=== PATIENT | female | born 1935 | race Caucasian/White ===

== ENCOUNTER 2017-10-25 20:27 | Inpatient (IN) | payer MEDICARE ==
[2017-10-25 21:46] LABS: Hemoglobin 8.8 g/dL (12.0-16.0); Mean Corpuscular HGB CONC 34.3 g/dL (32.0-36.0); Mean Corpuscular Hemoglobin 34.6 pg (27.0-31.0); Mean Platelet Volume 8.1 fL (7.4-10.4); Platelet Count 280 thou/uL (130-400); RBC Distribution Width 23.7 % (11.5-14.5); Red Blood Cell (RBC) Count 2.55 mill/uL (4.20-5.40); White Blood Cell (WBC) Count 10.1 thou/uL (4.8-10.8)
[2017-10-25 21:54] LABS: ALT (SGPT) 10 U/L (8-55); AST (SGOT) 20 U/L (5-34); Albumin 3.5 g/dL (3.4-4.8); Alkaline Phosphatase 56 U/L (40-150); Anion Gap 11 mmol/L (10-20); BUN (Urea Nitrogen) 24 mg/dL (9.8-20.1); Bilirubin, Total 0.6 mg/dL (0.2-1.2); CK (CPK) 17 U/L (29-168); Calc. Creatinine Clearance 0 mL/min (70-130); Calcium 9.2 mg/dL (7.8-10.44); Carbon Dioxide 27 mmol/L (23-31); Chloride 106 mmol/L (98-107); Estimated GFR-MDRD 48; Globulin 2.7 g/dL (2.4-3.5); Glucose 102 mg/dL (83-110); Potassium 3.5 mmol/L (3.5-5.1); Protein, Total 6.2 g/dL (6.0-8.3); Sodium 140 mmol/L (136-145)
[2017-10-25 21:58] LABS: CKMB 0.7 ng/mL (0-6.6); Troponin I Less than 0.010 ng/mL (< 0.028)
[2017-10-25 22:04] LABS: #Basophils 0.1 thou/uL (0.0-0.2); #Eosinphils 0.4 thou/uL (0.0-0.7); #Lymphocytes 4.2 thou/uL (1.20-3.40); #Monocytes 0.9 thou/uL (0.11-0.59); #Neutrophils 4.4 thou/uL (1.40-6.50); %Basophils 1.1 % (0.0-1.0); %Eosinophils 4.3 % (0.0-10.0); %Lymphocytes 41.7 % (21.0-51.0); %Neutrophils 43.9 % (42.0-75.0); Anisocytosis SLIGHT = 6-15 cells (100X) (0-5/hpf); Basophilic Stippling SLIGHT = 1-2 cells (100X) (None Seen); MDiff Complete? YES; Macrocytosis SLIGHT = 6-15 cells (100X) (0-5/hpf)
[2017-10-25 22:06] LABS: Acetaminophen Less than 6.0 mcg/mL (10.0-30.0); Alcohol Less than 10 mg/dL (Less than 10); Salicylate Less than 8.0 mg/dL (15.0-30.0)
[2017-10-25 22:10] LABS: Bilirubin Negative (Negative); Blood, Urine Negative (Negative); Clarity CLOUDY (Clear); Glucose, Urine (Dipstick) Negative (Negative); Leukocyte Negative (Negative); Nitrite Negative (Negative); Protein, Urine (Dipstick) Negative (Neg-Trace); Specific Gravity, Urine 1.016 (1.002-1.036); pH, Urine 6.5 (5.0-9.0)
[2017-10-25 22:20] LABS: Amphetamine Not Detected (NotDetected); Barbiturates Screen Not Detected (NotDetected); Benzodiazepine Screen Not Detected (NotDetected); Cocaine Metabolite Screen Not Detected (NotDetected); Medtox Control Line Valid? VALID (VALID); Medtox Reader # READER 1; Methadone Not Detected (NotDetected); Methamphetamine Not Detected (NotDetected); Opiate Screen Not Detected (NotDetected); Oxycodone Screen Not Detected (NotDetected); Phencyclidine (PCP) Not Detected (NotDetected); THC/Cannabinoid Screen Not Detected (NotDetected); Tricyclic Screen Not Detected (NotDetected)
--- NOTE | 2017-10-25 22:34 | RAD ---
PORTABLE AP CHEST X-RAY 10/25/17 HISTORY: Altered mental status. Weakness. On antibiotics for bladder infection. COMPARISON: 05/06/06. FINDINGS: The patient is rotated to the left which accentuates the cardiac silhouette and mediastinal structure s. There is a patchy parenchymal opacity seen within the left mid lung zone which may represent a foc al pneumonia. Right lung is clear. Degenerative changes are seen in the spine, there is right convexe d scoliosis of the thoracolumbar spine. Vascular calcifications in the thoracic aorta. IMPRESSION: 1. Pneumonia left mid lung zone. Followup to complete resolution is recommended. 2. Right convex scoliosis thoracolumbar spine. There is osseous irregularity of what is thought to be the L1 vertebral body. Patient is noted to have a burst fracture of the L1 vertebral body which is not well evaluated on this exam. POS: SHERI
[2017-10-25] MEDS ORDERED: cefTRIAXone\\ROCEPHIN 2 GM in Sodium Chloride 0.9% 100 ML IVPB SCH (23:00)
--- NOTE | 2017-10-25 23:37 | CT ---
CT HEAD WITHOUT IV CONTRAST 10/25/17 HISTORY: Altered mental status. Visual hallucinations. COMPARISON: None available. FINDINGS: There is a low density focus seen within the right thalamus related to a lacunar infarction of indete rminate age. There is decreased attenuation seen within the periventricular white matter likely refle ctive of chronic small vessel ischemic changes. There is a low density area in the medial aspect of t he left occipital lobe which is only seen on a single slice selection and may represent volume averag ing through a sulcus as opposed to a infarction in the left occipital lobe. There are no other findin gs to suggest an acute cortical infarction. There is no intraparenchymal or extra-axial hemorrhage. M ild cerebral and cerebellar volume loss is present. The ventricular system is normal in size, shape a nd position for the degree of sulcal atrophy. The visualized paranasal sinuses and mastoid air cells are clear. There is a lytic lesion measuring 9 mm within the right occipital bone just adjacent to the midline. While this could represent a tracey ioma, additional etiologies for this lesion cannot be excluded. Further evaluation with bone scan is suggested. IMPRESSION: 1. No definite acute intracranial abnormalities demonstrated. There is a low density area in the left occipital lobe which is felt to most likely be related to volume averaging through a sulcus as opposed to an acute infarction. MRI would be a more sensitive study of choice for evaluation of an ac traci infarction. 2. 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 3. Chronic small vessel ischemic changes with cerebral volume loss. 4. Lytic lesion within the right occipital bone which could potentially represent a hemangioma, but other etiologies for this lesion cannot be entirely excluded. Bone scan is suggested for further evaluation. POS: SHERI
[2017-10-25] MEDS ORDERED: Aspirin 325 MG TAB ONE (23:50)
[2017-10-26] MEDS ORDERED: Acetaminophen 325 MG TAB PO PRN (01:30)
[2017-10-26] MEDS ORDERED: Ondansetron ODT 4 MG TAB SL PRN (01:30)
[2017-10-26] MEDS ORDERED: Ondansetron HCl/PF 4 MG/2 ML Vial IVP PRN ×2 (01:30→01:32)
[2017-10-26] MEDS ORDERED: Loperamide HCl 2 MG CAP PO PRN (01:32)
[2017-10-26] MEDS ORDERED: HYDROcodone/Acetaminophen 5/325 mg Tablet PO PRN (01:32)
[2017-10-26] MEDS ORDERED: Milk Of Magnesia 30 ML UDCUP PO PRN (01:32)
[2017-10-26] MEDS ORDERED: Senokot 8.6 MG TAB PO PRN (01:32)
[2017-10-26] MEDS ORDERED: Mag-Al 1200 mg/1200 mg/30 ML UDCUP PO PRN (01:32)
[2017-10-26] MEDS: Sodium Chloride 0.9% 1,000 ML IV SCH ×2 (01:57→08:37)
[2017-10-26] MEDS ORDERED: Azithromycin 500 MG in Sodium Chloride 0.9% 250 ML 250 ML IVPB SCH (02:00)
--- NOTE | 2017-10-26 02:54 | HP ---
DATE OF SERVICE: 10/25/2017 PRIMARY CARE PHYSICIAN: Dr. Danny Sewell. REASON FOR ADMISSION: Altered mental status, pneumonia. HISTORY OF PRESENT ILLNESS: An 82-year-old female, who has history of tobacco abuse disorder, who wa s brought to emergency room because the patient was having hallucinations. She was altered. She was incoherent. She was recently given antibiotic therapy with amoxicillin for urinary tract infection. She was having cough, but she did not have any pleuritic chest pain. She did not have any fever or chills at home. The patient's behavior was little bit strange and that is why family member was concerned about and d ecided to bring to emergency room. In the emergency room, the patient is found with left-sided pneumonia. Her CT brain showed lacunar i nfarction of undetermined age. This patient has underlying history of Alzheimer's dementia and she i s on medicine for that. The patient's family member reports that her confusion is more than usual. ALLERGIES: No known drug allergy. CURRENT HOME MEDICATIONS: Aspirin 81 mg p.o. daily, vitamin D3 of 1000 units p.o. daily, Colace 100 mg p.o. daily, Aricept 10 mg p.o. daily, levothyroxine 25 mcg p.o. daily, Namenda 5 mg p.o. b.i.d., T oprol-XL 100 mg p.o. daily, Zoloft 100 mg p.o. daily, trospium 60 mg p.o. daily in the morning. REVIEW OF SYSTEMS: The following complete review of systems was negative, unless otherwise mentioned in the HPI or below: Constitutional: Weight loss or gain, ability to conduct usual activities. Skin: Rash, itching. Eyes: Double vision, pain. ENT/Mouth: Nose bleeding, neck stiffness, pain, tenderness. Cardiovascular: Palpitations, dyspnea on exertion, orthopnea. Respiratory: Shortness of breath, wheezing, cough, hemoptysis, fever or night sweats. Gastrointestinal: Poor appetite, abdominal pain, heartburn, nausea, vomiting, constipation, or diarr hea. Genitourinary: Urgency, frequency, dysuria, nocturia. Musculoskeletal: Pain, swelling. Neurologic/Psychiatric: Anxiety, depression. Allergy/Immunologic: Skin rash, bleeding tendency. Please see my HPI for pertinent positive and negative. All other review of systems reviewed and nega tive except as mentioned in the HPI. Review of system is not reliable because of her underlying cesilia ntia. PAST MEDICAL HISTORY: Hypothyroidism, recurrent urinary tract infection, hypertension, dyslipidemia, Alzheimer's dementia. PAST PSYCHIATRIC HISTORY: Anxiety and depression. PAST SURGICAL HISTORY: Hysterectomy. SOCIAL HISTORY: The patient has history of smoking. She lives at home with the family. No history of alcohol or other illicit drug abuse. FAMILY HISTORY: No strong family history of premature coronary artery disease, stroke or cancer. EMERGENCY ROOM COURSE: The patient is given Rocephin, azithromycin, aspirin and IV fluid. PHYSICAL EXAMINATION: VITAL SIGNS: On arrival, blood pressure 183/69, pulse 62, respiratory rate 16, temperature 98.3, sat uration 95% on room air, weight 67.1 kilograms. GENERAL: The patient is currently alert, awake, arousable, but slightly confused. HEAD: Normocephalic, atraumatic. EYES: Pupils are round and reactive to light. Extraocular muscle intact. ENT: Oropharynx within normal limits. Moist mucous membranes. No oral lesion, no pharyngeal erythe ma, no exudate. NECK: Supple, no JVD, no thyromegaly, no carotid bruit. LUNGS: A few rales noted on the left side. No wheeze, no rhonchi. CARDIAC: S1, S2 appears regular. No murmur, no gallop, no rub. ABDOMEN: Soft, bowel sounds present, nontender, nondistended. No organomegaly, no mass, no suprapub ic tenderness. BACK: Unremarkable, no CVA tenderness. EXTREMITIES: Upper extremity, passive movement of all joints are normal. Lower extremities, no keara a. Good peripheral pulsation. SKIN: No skin rash. HEMATOLOGICAL: No lymphadenopathy. NEUROLOGIC: The patient is pleasantly demented. Detailed neurological examination is not possible, but I could not elicit any focal neurological deficit based on gross examination. PSYCHIATRIC: Normal affect. SIGNIFICANT LABORATORY DATA: 1. EKG showing first degree AV block, nonspecific ST-T changes in inferior leads. 2. CT brain based on my review, brain atrophy, chronic ischemic white matter changes. The patient d oes have an indeterminant lacunar infarction in thalamus, chronic small vessel ischemic changes. 3. Chest x-ray showing pneumonia in the left mid lung zone. 4. CBC: WBC 10.1, hemoglobin 8.8, MCV 101, platelet 280. 5. BMP: Sodium 140, potassium 3.5, chloride 106, carbon dioxide 27, anion gap 11, BUN 24, creatinin e 1.08, glucose 102, calcium 9.2, lactic acid 1.5. 6. LFT: AST 20, ALT 10, alkaline phosphatase 56, albumin 3.5. CK 17, CK-MB 0.7, troponin I less th an 0.010. TSH 2.23. 7. Urinalysis normal. Urine drug screen negative. Serum drug screen negative. ASSESSMENT AND PLAN: IMPRESSION: 1. Altered mental status (hallucination, incoherent and confusion), most likely related with underly ing pneumonia. Other etiology needs to be excluded. 2. Macrocytic anemia. Check B12, folate and start folic acid, vitamin B12, and multivitamin therapy . 3. Community-acquired pneumonia. Start Rocephin and Levaquin therapy. 4. Tobacco abuse disorder. Smoking cessation counseling given. We will offer nicotine patch if nee ded. 5. Hypothyroidism. Continue home dose of Synthroid 25 mcg p.o. daily. 6. Anxiety and depression. Continue Zoloft 100 mg p.o. daily. 7. Alzheimer's dementia. Continue Namenda 5 mg p.o. b.i.d., and Aricept 10 mg p.o. daily. 8. Hypertension. Continue Toprol-XL 100 mg p.o. daily. 9. Deep venous thrombosis prophylaxis. Lovenox 40 mg subcu daily. 10. Gastrointestinal prophylaxis. Pepcid 20 mg IV daily. 11. Code status: The patient is FULL CODE. The patient's daughter is surrogate decision maker. Disposition plan based on clinical course. We are expecting the patient's stay in hospital 24-48 oz rs. If condition does not improve, then we will consider changing to inpatient status. We will also start PT, OT while in hospital.
[2017-10-26 05:28] LABS: #Basophils 0.1 thou/uL (0.0-0.2); #Eosinphils 0.5 thou/uL (0.0-0.7); #Lymphocytes 4.4 thou/uL (1.20-3.40); #Neutrophils 3.7 thou/uL (1.40-6.50); %Basophils 1.1 % (0.0-1.0); %Lymphocytes 45.3 % (21.0-51.0); %Monocytes 10.3 % (0.0-10.0); %Neutrophils 38.3 % (42.0-75.0); Hemoglobin 7.8 g/dL (12.0-16.0); Mean Corpuscular Hemoglobin 33.4 pg (27.0-31.0); Mean Platelet Volume 8.6 fL (7.4-10.4); Platelet Count 263 thou/uL (130-400); RBC Distribution Width 24.2 % (11.5-14.5); Red Blood Cell (RBC) Count 2.34 mill/uL (4.20-5.40); White Blood Cell (WBC) Count 9.8 thou/uL (4.8-10.8)
[2017-10-26 05:49] LABS: Anion Gap 10 mmol/L (10-20); BUN (Urea Nitrogen) 20 mg/dL (9.8-20.1); Calc. Creatinine Clearance 50 mL/min (70-130); Calcium 8.4 mg/dL (7.8-10.44); Carbon Dioxide 25 mmol/L (23-31); Chloride 110 mmol/L (98-107); Estimated GFR-MDRD 60; Glucose 85 mg/dL (83-110); Potassium 3.3 mmol/L (3.5-5.1); Sodium 142 mmol/L (136-145)
[2017-10-26] MEDS: Levothyroxine Sodium 25 MCG TAB PO SCH (05:49)
[2017-10-26] MEDS: Donepezil HCl 10 MG TAB PO SCH (08:38)
[2017-10-26] MEDS: Cyanocobalamin (Vitamin B-12) 1,000 MCG TAB PO SCH (08:39)
[2017-10-26] MEDS: TROSPIUM 20 MG TABLET PO SCH ×2 (08:39→22:53)
[2017-10-26] MEDS: Docusate 100 MG CAP PO SCH ×2 (08:40→23:00)
[2017-10-26] MEDS: Folic Acid 1 MG TAB PO SCH (08:40)
[2017-10-26] MEDS: Enoxaparin Sodium 40 MG/0.4 ML SYRINGE SC SCH (08:40)
[2017-10-26] MEDS: Multivitamin W/ Minerals 1 TAB PO SCH (08:40)
[2017-10-26] MEDS ORDERED: Aspirin 81 mg Enteric Coated Tablet PO SCH (09:00)
[2017-10-26] MEDS ORDERED: Famotidine/PF 20 mg/2ml Vial SLOW IVP SCH (09:00)
[2017-10-26] MEDS ORDERED: Potassium Chloride 20 MEQ TAB PO SCH (09:15)
--- NOTE | 2017-10-26 11:42 | PDOC.PN ---
- Subjective Encounter Start Date: 10/26/17 Encounter Start Time: 07:40 Pt seen for followup re: community acquired pneumonia. Awake and alert, not in acute distress. Denies chest pain, shortness of breath, fevers or chills. Chronic cough, no acute change per family. Pt more alert per family. - Objective Resuscitation Status: Resuscitation Status FULL:Full Resuscitation MAR Reviewed: Yes Vital Signs & Weight: Vital Signs (12 hours) Temp Pulse Resp BP BP Pulse Ox 10/26/17 08:30 98.4 F 73 20 136/60 92 L 10/26/17 04:00 98.4 F 73 20 115/56 L 91 L 10/26/17 01:06 97.2 F L 81 20 140/65 99 10/26/17 00:55 97.2 F L 81 20 140/65 99 Weight Weight 148 lb I&O: 10/25/17 10/26/17 10/27/17 06:59 06:59 06:59 Intake Total 571 Balance 571 Result Diagrams: 10/26/17 04:12 10/26/17 04:12 EKG Reviewed by me: Yes (Tele: NSR) Phys Exam - Physical Examination Constitutional: NAD HEENT: PERRLA, moist MMs, sclera anicteric, oral pharynx no lesions Neck: no nodes, no JVD, supple, full ROM Respiratory: clear to auscultation bilateral Cardiovascular: RRR, no rub Gastrointestinal: soft, non-tender, no distention, positive bowel sounds Musculoskeletal: pulses present Neurological: moves all 4 limbs Psychiatric: normal affect Deviation from normal: Oriented to person only, not to place or time Dx/Plan (1) CAP (community acquired pneumonia) Code(s): J18.9 - PNEUMONIA, UNSPECIFIED ORGANISM Status: Acute (2) Acute encephalopathy Code(s): G93.40 - ENCEPHALOPATHY, UNSPECIFIED Status: Acute (3) Hypokalemia Code(s): E87.6 - HYPOKALEMIA Status: Acute (4) Hypothyroidism Code(s): E03.9 - HYPOTHYROIDISM, UNSPECIFIED Status: Chronic (5) HTN (hypertension) Code(s): I10 - ESSENTIAL (PRIMARY) HYPERTENSION Status: Chronic (6) Dyslipidemia Code(s): E78.5 - HYPERLIPIDEMIA, UNSPECIFIED Status: Chronic - Plan plan discussed w/ family, continue antibiotics, out of bed/ambulate * . Continue antibiotics as below. Monitor vital signs, titrate antihypertensives as needed. Acute encephalopathy improving. Family deciding re: MRI. Monitor hemoglobin, transfuse if symptomatic. Review of Systems - Review of Systems Constitutional: negative: fever, chills, sweats, weakness, malaise Respiratory: negative: Cough, Dry, Shortness of Breath, Hemoptysis, SOB with Excertion, Pleuritic Pain, Sputum, Wheezing Cardiovascular: negative: chest pain, palpitations, orthopnea, paroxysmal nocturnal dyspnea, edema, light headedness Gastrointestinal: negative: Nausea, Vomiting, Abdominal Pain, Diarrhea, Constipation, Melena, Hematochezia Genitourinary: negative: Dysuria, Frequency, Incontinence, Hematuria, Retention - Medications/Allergies Allergies/Adverse Reactions: Allergies Allergy/AdvReac Type Severity Reaction Status Date / Time No Allergy Information Allergy Verified 10/26/17 01:36 Available Medications: Current Medications Acetaminophen (Tylenol) 650 mg PO Q4H PRN PRN Reason: Headache/Fever or Pain Hydrocodone Bitart/Acetaminophen ([place] 5/325) 1 tab PO Q4H PRN PRN Reason: Moderate Pain (4-6) Al Hydroxide/Mg Hydroxide (Maalox) 30 ml PO Q6H PRN PRN Reason: Heartburn or Indigestion Aspirin (Ecotrin) 81 mg PO DAILY [facility] [place] Last Admin: 10/26/17 08:39 Dose: 81 mg Cholecalciferol (Vitamin D3) 1,000 units PO DAILY [facility] [place] Last Admin: 10/26/17 08:41 Dose: 1,000 units Cyanocobalamin (Vitamin B-12) 1,000 mcg PO DAILY [facility] [place] Last Admin: 10/26/17 08:39 Dose: 1,000 mcg Docusate Sodium (Colace) 100 mg PO BID [facility] [place] Last Admin: 10/26/17 08:40 Dose: 100 mg Donepezil HCl (Aricept) 10 mg PO DAILY [facility] [place] Last Admin: 10/26/17 08:38 Dose: 10 mg Enoxaparin Sodium (Lovenox) 40 mg SC 0900 [facility] [place] Last Admin: 10/26/17 08:40 Dose: 40 mg Famotidine (Pepcid) 20 mg SLOW IVP DAILY [facility] [place] Last Admin: 10/26/17 08:40 Dose: 20 mg Folic Acid (Folvite) 1 mg PO DAILY [facility] [place] Last Admin: 10/26/17 08:40 Dose: 1 mg Ceftriaxone Sodium 1 gm/ (Sodium Chloride) 100 mls @ 200 mls/hr IVPB 2200 [facility] [place] Levofloxacin 500 mg/ Device 100 mls @ 100 mls/hr IVPB 0200 [facility] [place] Last Admin: 10/26/17 02:31 Dose: 100 mls Sodium Chloride (Normal Saline 0.9%) 1,000 mls @ 75 mls/hr IV .[id number] [facility] [place] Last Admin: 10/26/17 08:37 Dose: 1,000 mls Iron/Minerals/Multivitamins (Theragran M) 1 tab PO DAILY [facility] [place] Last Admin: 10/26/17 08:40 Dose: 1 tab Levothyroxine Sodium (Synthroid) 25 mcg PO 0600 [facility] [place] Last Admin: 10/26/17 05:49 Dose: 25 mcg Loperamide HCl (Imodium) 2 mg PO PRN PRN PRN Reason: Diarrhea/Loose Stools Magnesium Hydroxide (Milk Of Magnesium) 30 ml PO DAILYPRN PRN PRN Reason: Constipation Memantine (Namenda) 5 mg PO BID [facility] [place] Last Admin: 10/26/17 08:39 Dose: 5 mg Metoprolol Succinate (Toprol Xl) 100 mg PO DAILY [facility] [place] Last Admin: 10/26/17 08:39 Dose: 100 mg Ondansetron HCl (Zofran) 4 mg IVP Q6H PRN PRN Reason: Nausea/Vomiting Senna (Senokot) 2 tab PO HSPRN PRN PRN Reason: Constipation Sertraline HCl (Zoloft) 100 mg PO QAM [facility] [place] Trospium (Trospium) 20 mg PO BID [facility] [place] Last Admin: 10/26/17 08:39 Dose: 20 mg
[2017-10-26] MEDS ORDERED: ALPRAZolam 0.25 MG TAB PO PRN (15:35)
[2017-10-26] MEDS ORDERED: ALPRAZolam 0.25 MG TAB PO SCH (15:45)
[2017-10-26 21:54] LABS: Hemoglobin 8.6 g/dL (12.0-16.0); Mean Corpuscular HGB CONC 32.7 g/dL (32.0-36.0); Mean Corpuscular Hemoglobin 34.1 pg (27.0-31.0); Mean Platelet Volume 8.5 fL (7.4-10.4); Platelet Count 294 thou/uL (130-400); Red Blood Cell (RBC) Count 2.52 mill/uL (4.20-5.40)
[2017-10-26 21:56] LABS: INR-International Normal Ratio 1.2; PTT 23.2 SEC (22.9-36.1); Prothrombin Time 15.7 SEC (12.0-14.7)
[2017-10-26] MEDS ORDERED: cefTRIAXone\\ROCEPHIN 1 GM in Sodium Chloride 0.9% 100 ML IVPB SCH (22:00)
[2017-10-26 22:06] LABS: ALT (SGPT) 11 U/L (8-55); AST (SGOT) 27 U/L (5-34); Albumin 3.2 g/dL (3.4-4.8); Alkaline Phosphatase 51 U/L (40-150); Anion Gap 9 mmol/L (10-20); BUN (Urea Nitrogen) 17 mg/dL (9.8-20.1); Bilirubin, Total 0.5 mg/dL (0.2-1.2); Calc. Creatinine Clearance 44 mL/min (70-130); Calcium 8.4 mg/dL (7.8-10.44); Carbon Dioxide 24 mmol/L (23-31); Chloride 113 mmol/L (98-107); Estimated GFR-MDRD 51; Globulin 2.4 g/dL (2.4-3.5); Glucose 91 mg/dL (83-110); Potassium 4.3 mmol/L (3.5-5.1); Protein, Total 5.6 g/dL (6.0-8.3); Sodium 142 mmol/L (136-145)
[2017-10-26 22:09] LABS: CKMB 1.8 ng/mL (0-6.6); Troponin I 0.035 ng/mL (< 0.028)
--- NOTE | 2017-10-26 22:12 | PDOC.EVN ---
Event Note - Event Note Event Note: Code green was called due to AMS/worsoning encephalopathy Is seen moving all extremities, vitals: spo2 around 91% otherwise normal Lungs: rhonchi+, no rales Labs ordered CT brain: no new changes when compared to yesterday's CT. Christian, continue current meds D/w daughter regarding code status: wants her to be DNR.
[2017-10-26 22:16] LABS: Anisocytosis SLIGHT = 6-15 cells (100X) (0-5/hpf); Band 13 % (5-11); Elliptocytes SLIGHT = 2-5 cells (100X) (0-1/hpf); Eosinophils 2 % (0-10); Lymphocytes 36 % (21-51); MDiff Complete? YES; Monocytes 11 % (0-10); Neutrophil 38 % (42-75); Schistocytes SLIGHT = 2-5 cells (100X) (0-1/hpf); White Blood Cell (WBC) Count 10.8 thou/uL (4.8-10.8)
[2017-10-26] MEDS: cefTRIAXone\\ROCEPHIN 1 GM, Syringe 0.4 ML in Sterile Water 9.6 ML SLOW IVP SCH (22:53)
--- NOTE | 2017-10-26 23:04 | CT ---
NONCONTRAST CT HEAD 10/26/17 HISTORY: Dementia and altered mental status. Symptomatic anemia. Slurred speech and left sided facial droop. COMPARISON: 10/25/17. FINDINGS: Again noted is the lacunar infarction in the right thalamus of indeterminate age. Chronic small vesse l ischemic changes and cerebral volume loss is again present. There is no evidence of an acute cortic al infarction, hemorrhage, mass effect or midline shift. Ventricular system is normal size, shape and position for the degree of sulcal atrophy. The lytic lesion within the right parietal bone is again present. There has been no interval change from the prior exam. IMPRESSION: 1. 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 2. Stable chronic small vessel ischemic changes and cerebral volume loss. 3. Lytic lesion right parietal bone which could potentially represent a hemangioma, but this can not be further characterized on this exam. Bone scan may be helpful for further evaluation. 4. Above findings discussed with Dr. Caban on 10/26/17 at 2153 hours.
[2017-10-27] MEDS: Levothyroxine Sodium 25 MCG TAB PO SCH (05:22)
[2017-10-27 09:20] LABS: Anion Gap 10 mmol/L (10-20); BUN (Urea Nitrogen) 14 mg/dL (9.8-20.1); Calc. Creatinine Clearance 47 mL/min (70-130); Calcium 8.5 mg/dL (7.8-10.44); Carbon Dioxide 24 mmol/L (23-31); Chloride 110 mmol/L (98-107); Estimated GFR-MDRD 56; Glucose 89 mg/dL (83-110); Potassium 3.8 mmol/L (3.5-5.1); Sodium 140 mmol/L (136-145)
[2017-10-27 09:25] LABS: CKMB 1.6 ng/mL (0-6.6); Troponin I 0.046 ng/mL (< 0.028)
[2017-10-27 09:51] LABS: Band 22 % (5-11); Eosinophils 9 % (0-10); Hypochromia SLIGHT = 6-15 cells (100X) (0-5/hpf); Lymphocytes 19 % (21-51); MDiff Complete? YES; Macrocytosis SLIGHT = 6-15 cells (100X) (0-5/hpf); Mean Corpuscular Hemoglobin 34.2 pg (27.0-31.0); Mean Platelet Volume 8.3 fL (7.4-10.4); Metamyelocyte 1 % (0-0); Monocytes 7 % (0-10); Neutrophil 42 % (42-75); Nucleated RBC 2 % (0); Platelet Count 309 thou/uL (130-400); Polychromasia SLIGHT = 2-3 cells (100X) (0-2/hpf); RBC Distribution Width 24.1 % (11.5-14.5); Red Blood Cell (RBC) Count 2.34 mill/uL (4.20-5.40); Reflex for Review?? NO; Schistocytes SLIGHT = 2-5 cells (100X) (0-1/hpf)
[2017-10-27] MEDS: Aspirin 325 MG TAB PO SCH (10:21)
[2017-10-27] MEDS: Donepezil HCl 10 MG TAB PO SCH (10:22)
[2017-10-27] MEDS: Cyanocobalamin (Vitamin B-12) 1,000 MCG TAB PO SCH (10:22)
[2017-10-27] MEDS: Famotidine 20 MG TAB PO SCH (10:22)
[2017-10-27] MEDS: Docusate 100 MG CAP PO SCH ×2 (10:22→21:42)
[2017-10-27] MEDS: Folic Acid 1 MG TAB PO SCH (10:23)
[2017-10-27] MEDS: Multivitamin W/ Minerals 1 TAB PO SCH (10:23)
[2017-10-27] MEDS: TROSPIUM 20 MG TABLET PO SCH ×2 (10:24→21:42)
[2017-10-27] MEDS: Enoxaparin Sodium 40 MG/0.4 ML SYRINGE SC SCH (10:28)
[2017-10-27] MEDS ORDERED: VANCOMYCIN IVPB PRN (10:30)
--- NOTE | 2017-10-27 10:31 | ULT ---
CAROTID DUPLEX ULTRASOUND: INDICATION: Altered mental status with a history of CVA. FINDINGS: There is mild to moderate partially calcified atherosclerotic plaque involving the left carotid bulb, and left internal carotid artery. The peak systolic velocities within the CCA and ICAs are within normal limits. The IC/CC ratio is wi thin normal limits. There is antegrade flow within both vertebral arteries. Peak systolic velocity in the right CCA was 61.8 cm/s. The right CCA was 62.7 cm/s. Peak systolic velocity in the right ICA was 56.7 cm/s. Left ICA was 57.4 cm/s. Right IC:CC ratio is 0.93. Left IC:CC ratio is 0.76. IMPRESSION: No hemodynamically significant stenosis. POS: JOSE
--- NOTE | 2017-10-27 10:33 | PDOC.PN ---
- Subjective Encounter Start Date: 10/27/17 Encounter Start Time: 07:00 -: old records requested/rev last night pt was confused, this morning pt is confused, not following any command, per family noted fascial droop, no fever, last night Ct brain did not change, last night pt was made DNR - Objective MAR Reviewed: Yes Result Diagrams: 10/27/17 08:31 10/27/17 08:31 Radiology Reviewed by me: Yes (CT brain) EKG Reviewed by me: Yes (nsr) Phys Exam - Physical Examination Constitutional: NAD HEENT: PERRLA, moist MMs, sclera anicteric Neck: no JVD, supple Respiratory: no wheezing, no rales, no rhonchi Cardiovascular: RRR, no significant murmur, no rub Gastrointestinal: soft, non-tender, no distention, positive bowel sounds Musculoskeletal: no edema, pulses present Lymphatic: no nodes Skin: no rash, normal turgor Dx/Plan (1) Acute encephalopathy Code(s): G93.40 - ENCEPHALOPATHY, UNSPECIFIED Status: Acute (2) CAP (community acquired pneumonia) Code(s): J18.9 - PNEUMONIA, UNSPECIFIED ORGANISM Status: Acute Qualifiers: Laterality: left Lung location: upper lobe of lung Qualified Code(s): J18.1 - Lobar pneumonia, unspecified organism (3) Demand ischemia Code(s): I24.8 - OTHER FORMS OF ACUTE ISCHEMIC HEART DISEASE Status: Acute (4) Hypokalemia Code(s): E87.6 - HYPOKALEMIA Status: Acute (5) Alzheimer's dementia Code(s): G30.9 - ALZHEIMER'S DISEASE, UNSPECIFIED; F02.80 - DEMENTIA IN OTH DISEASES CLASSD ELSWHR W/O BEHAVRL DISTURB Status: Chronic (6) Anxiety and depression Code(s): F41.8 - OTHER SPECIFIED ANXIETY DISORDERS Status: Chronic (7) Dyslipidemia Code(s): E78.5 - HYPERLIPIDEMIA, UNSPECIFIED Status: Chronic (8) HTN (hypertension) Code(s): I10 - ESSENTIAL (PRIMARY) HYPERTENSION Status: Chronic (9) Hypothyroidism Code(s): E03.9 - HYPOTHYROIDISM, UNSPECIFIED Status: Chronic (10) Macrocytic anemia Code(s): D53.9 - NUTRITIONAL ANEMIA, UNSPECIFIED Status: Chronic (11) Tobacco abuse Code(s): Z72.0 - TOBACCO USE Status: Chronic (12) CVA (cerebral vascular accident) Code(s): I63.9 - CEREBRAL INFARCTION, UNSPECIFIED Status: Suspected - Plan cont current plan of care, plan discussed w/ family, continue antibiotics, PT/OT , public health social worker, speech therapy * bandemia is worse, will add vancomycin * pt is not able to take orally, will start dec with 1/2 NS * will do mri brain, echo cardotid us * repeat labs tomorrow * DNR status verified again today * medication reviewed as below * symptomatic treatment. * discussed with family * add lipitor, change aspirin 325 * change to inpt status Review of Systems - Review of Systems Other: unable to review due to encephalopathy - Medications/Allergies Allergies/Adverse Reactions: Allergies Allergy/AdvReac Type Severity Reaction Status Date / Time No Allergy Information Allergy Verified 10/26/17 01:36 Available Medications: Current Medications Acetaminophen (Tylenol) 650 mg PO Q4H PRN PRN Reason: Headache/Fever or Pain Hydrocodone Bitart/Acetaminophen ([place] 5/325) 1 tab PO Q4H PRN PRN Reason: Moderate Pain (4-6) Al Hydroxide/Mg Hydroxide (Maalox) 30 ml PO Q6H PRN PRN Reason: Heartburn or Indigestion Albuterol/Ipratropium (Duoneb) 3 ml NEB [id number] [facility] Last Admin: 10/27/17 09:30 Dose: Not Given Alprazolam (Xanax) 0.25 mg PO BIDPRN PRN PRN Reason: Anxiety Aspirin (Aspirin) 325 mg PO DAILY [facility] Last Admin: 10/27/17 10:21 Dose: Not Given Atorvastatin Calcium (Lipitor) 10 mg PO [facility] Cholecalciferol (Vitamin D3) 1,000 units PO DAILY [facility] Last Admin: 10/27/17 10:21 Dose: Not Given Cyanocobalamin (Vitamin B-12) 1,000 mcg PO DAILY [facility] Last Admin: 10/27/17 10:22 Dose: Not Given Docusate Sodium (Colace) 100 mg PO BID [facility] Last Admin: 10/27/17 10:22 Dose: Not Given Donepezil HCl (Aricept) 10 mg PO DAILY [facility] Last Admin: 10/27/17 10:22 Dose: Not Given Enoxaparin Sodium (Lovenox) 40 mg SC 0900 [facility] Last Admin: 10/27/17 10:28 Dose: 40 mg Famotidine (Pepcid) 20 mg PO DAILY [facility] Last Admin: 10/27/17 10:22 Dose: Not Given Folic Acid (Folvite) 1 mg PO DAILY [facility] Last Admin: 10/27/17 10:23 Dose: Not Given Levofloxacin 500 mg/ Device 100 mls @ 100 mls/hr IVPB 0200 [facility] Last Admin: 10/27/17 02:27 Dose: 100 mls Ceftriaxone Sodium 1 gm/ (Syringe 0.4 ml/ Sterile Water) 10 mls @ 120 mls/hr SLOW IVP 2200 [facility] Last Admin: 10/26/17 22:53 Dose: 10 mls Iron/Minerals/Multivitamins (Theragran M) 1 tab PO DAILY [facility] Last Admin: 10/27/17 10:23 Dose: Not Given Levothyroxine Sodium (Synthroid) 25 mcg PO 0600 [facility] Last Admin: 10/27/17 05:22 Dose: Not Given Loperamide HCl (Imodium) 2 mg PO PRN PRN PRN Reason: Diarrhea/Loose Stools Magnesium Hydroxide (Milk Of Magnesium) 30 ml PO DAILYPRN PRN PRN Reason: Constipation Memantine (Namenda) 5 mg PO BID [facility] Last Admin: 10/27/17 10:23 Dose: Not Given Metoprolol Succinate (Toprol Xl) 100 mg PO DAILY [facility] Last Admin: 10/27/17 10:23 Dose: Not Given Miscellaneous Medication (Pharmacy To Dose) 1 each IVPB DAILYPRN PRN PRN Reason: LABS Ondansetron HCl (Zofran) 4 mg IVP Q6H PRN PRN Reason: Nausea/Vomiting Senna (Senokot) 2 tab PO HSPRN PRN PRN Reason: Constipation Sertraline HCl (Zoloft) 100 mg PO QAM [facility] Last Admin: 10/27/17 10:23 Dose: Not Given Trospium (Trospium) 20 mg PO BID [facility] Last Admin: 10/27/17 10:24 Dose: Not Given
[2017-10-27] MEDS ORDERED: Lorazepam 2 MG/ML VIAL ONE (11:34)
--- NOTE | 2017-10-27 13:24 | MRI ---
MRI BRAIN NONCONTRAST: DATE: 10/27/17. HISTORY: An 82-year-old female with altered mental status, dementia, and symptoms of acute stroke: dysarthria and left facial droop. COMPARISON: No prior brain MRIs. There are CTs of 10/26/17 and 10/25/17. FINDINGS: The ventricles are normal in size and configuration. There is no restricted diffusion, midline shift or any other mass effect, recent intraaxial hemorrhage, or extraaxial fluid collection. There are T 2-hyperintensities in the cerebral white matter consistent with mild chronic ischemic white matter ch anges due to mild microvascular atherosclerosis. There is an approximately 1 x 0.3 cm T1 hyperintens e lesion in the occipital bone slightly to the right of midline. This corresponds to the osteolytic lesion mentioned on the CT report. IMPRESSION: 1. Mild-moderate chronic ischemic white matter changes, and diffuse involutional changes, of the bra in. 2. Tiny old lacunar infarctions in the right thalamus. 3. The right occipital bone lesion mentioned on the CT is favored to be a small hemangioma (venous m alformation of bone), although that is not certain. Nuclear medicine whole body bone scan may be use ful. jnR POS: SHERI
[2017-10-27] MEDS: Vancomycin HCl 1 GM in Premix Bag 1 BAG IVPB SCH (13:35)
[2017-10-27] MEDS: Dextrose 5 %-0.45 % NaCl 1,000 ML IV SCH (13:35)
[2017-10-27] MEDS ORDERED: Lorazepam 2 MG/ML VIAL SLOW IVP SCH (13:45)
[2017-10-27] MEDS: Atorvastatin Calcium 10 MG TAB PO SCH (21:42)
[2017-10-27] MEDS: cefTRIAXone\\ROCEPHIN 1 GM, Syringe 0.4 ML in Sterile Water 9.6 ML SLOW IVP SCH (21:43)
--- NOTE | 2017-10-28 01:09 | CON ---
DATE OF CONSULTATION: 10/27/2017 REFERRING PHYSICIAN: Rivas Hill MD REASON FOR CONSULTATION: Confusion. HISTORY OF PRESENT ILLNESS: Ms. Sanchez is a pleasant 82-year-old female who has been consulted for evaluation of altered mental status and confusion. History is obtained from patient's family members who were present at bedside. Daughter reports that the patient has a history of dementia that is advanced. She has been diagnosed with dementia for approximately 2-3 years. At baseline, she requires help with her activities of daily living including bathing, grooming, brushing her teeth, and feeding. She is able to converse with family members and she is able to walk with the walker on short distance. Daughter notes that approximately 2 days ago, she started having increasing episodes of hallucinations where she was seeing and hearing things which were not there. She was also becoming more confused and lethargic. She had seen her primary care provider, Dr. Edmonds as outpatient and was diagnosed with urinary tract infection. She was started on amoxicillin; however, her confusion was seemingly getting worse, which prompted them to bring her to the [facility]. There was also felt by the family member that she was having some droopiness of her face. Daughter notes that she does tend to get hallucinations when she is having urinary tract infection. They have been increasing in frequency and for this reason, they had asked the primary care provider to check her urine for infection. PAST MEDICAL HISTORY: Significant for hypertension, dyslipidemia, hypothyroidism, recurrent urinary tract infection, and Alzheimer dementia. PAST SURGICAL HISTORY: Significant for hysterectomy. SOCIAL HISTORY: She has a history of smoking. She does not drink alcohol or use illicit drugs. She currently lives with her family. FAMILY HISTORY: Noncontributory. CURRENT MEDICATIONS: Please review MAR. ALLERGIES: No known drug allergies. REVIEW OF SYSTEMS: Unable to perform. PHYSICAL EXAMINATION: VITAL SIGNS: Blood pressure of 157/85, pulse of 65, temperature of 98.5, respirations of 16, O2 sats of 96% on room air. GENERAL: A well-developed, well-nourished female in no apparent distress. RESPIRATORY: Clear to auscultation bilaterally. CARDIOVASCULAR: Regular rate and rhythm. NEUROLOGIC: Mental status: The patient is obtunded. She wakes up to repeated- noxious stimulation. She falls back to sleep within few seconds. She is not able to follow commands. Speech and language limited evaluation due to patient not waking up. She did voice okay and yes. Cranial nerves: Pupils are 3 mm and reactive. Visual lal are full to threat. Face appears symmetric. The rest of the exam could not be performed. Motor exam showed normal tone and bulk. She spontaneously moves both upper and lower extremities. She is actively withdrawing when trying to move her and seriously withdraws to pain in both upper and lower extremities. Babinski: Plantar responses flexion bilaterally. Gait and Romberg coordination could not be tested. LABORATORY DATA: Reviewed, which included CBC, coag panel, CMP, troponin B12, folate, TSH, urinalysis and urine drug screen, which is significant for hemoglobin 8.0, hematocrit of 24.2, PT of 15.7, INR 1.2, PTT of 23.2, troponin 0.046, otherwise unremarkable. IMAGING STUDIES: MRI brain without contrast was reviewed, which showed no acute intracranial abnormality. Carotid Doppler results were reviewed, which showed no hemodynamically significant stenosis. IMPRESSION: 1. Altered mental status, likely toxic metabolic encephalopathy. 2. Alzheimer dementia. PLAN: Ms. Sanchez is a pleasant 82-year-old female who has a history of Alzheimer dementia that is advanced, presented with worsening confusion, and hallucinations. She was noted to have a urinary tract infection 2 days ago for which she was started on antibiotic by her PCP, a likely source of confusion or worsening of her dementia is underlying infection. At this time, we will recommend continuing supportive care, I have just spoke with the patient's family and explained that the confusion tends to be worse post-infection for several days to weeks, even though the infection has already cleared up. I would recommend continuing supportive care. ABDULKADIR
[2017-10-28] MEDS: Levothyroxine Sodium 25 MCG TAB PO SCH (05:15)
[2017-10-28] MEDS: Dextrose 5 %-0.45 % NaCl 1,000 ML IV SCH (05:16)
[2017-10-28 05:21] LABS: Anion Gap 12 mmol/L (10-20); BUN (Urea Nitrogen) 14 mg/dL (9.8-20.1); Calc. Creatinine Clearance 47 mL/min (70-130); Calcium 8.6 mg/dL (7.8-10.44); Carbon Dioxide 22 mmol/L (23-31); Cardiac Risk 3.9 (Less than 4.5); Chloride 110 mmol/L (98-107); Cholesterol 165 mg/dl (< 200 Desired); Estimated GFR-MDRD 55; Glucose 101 mg/dL (83-110); HDL Cholesterol 42 mg/dL (>60 Neg Risk); LDL Cholesterol, Calculated 106 mg/dL; Potassium 3.5 mmol/L (3.5-5.1); Sodium 140 mmol/L (136-145); Triglycerides 85 mg/dL (Less than 150)
[2017-10-28 05:24] LABS: Band 12 % (5-11); Basophilic Stippling SLIGHT = 1-2 cells (100X) (None Seen); Hemoglobin 8.2 g/dL (12.0-16.0); Lymphocytes 15 % (21-51); MDiff Complete? YES; Mean Corpuscular HGB CONC 33.3 g/dL (32.0-36.0); Mean Corpuscular Hemoglobin 34.1 pg (27.0-31.0); Mean Platelet Volume 7.8 fL (7.4-10.4); Metamyelocyte 1 % (0-0); Monocytes 8 % (0-10); Neutrophil 64 % (42-75); Nucleated RBC 3 % (0); Platelet Count 317 thou/uL (130-400); Polychromasia SLIGHT = 2-3 cells (100X) (0-2/hpf); RBC Distribution Width 24.7 % (11.5-14.5); Red Blood Cell (RBC) Count 2.39 mill/uL (4.20-5.40); White Blood Cell (WBC) Count 14.6 thou/uL (4.8-10.8)
[2017-10-28 05:25] LABS: Troponin I 0.038 ng/mL (< 0.028)
--- NOTE | 2017-10-28 10:01 | PDOC.PN ---
- Subjective Encounter Start Date: 10/28/17 Encounter Start Time: 07:00 pt is much better and back to baseline - Objective MAR Reviewed: Yes Vital Signs & Weight: Vital Signs (12 hours) Temp Pulse Resp BP Pulse Ox 10/28/17 08:00 99.1 F 86 16 93 L 10/28/17 07:47 99.1 F 86 16 163/78 H 93 L 10/28/17 07:17 76 16 10/28/17 03:40 100.0 F H 84 18 146/72 H 90 L 10/28/17 01:33 92 L 10/28/17 00:00 99.3 F 80 16 180/60 H 90 L I&O: 10/27/17 10/28/17 10/29/17 06:59 06:59 06:59 Intake Total 30 Balance 30 Result Diagrams: 10/28/17 04:44 10/28/17 04:44 EKG Reviewed by me: Yes Phys Exam - Physical Examination Constitutional: NAD HEENT: PERRLA, moist MMs, sclera anicteric Neck: no JVD, supple Respiratory: no wheezing, no rales, no rhonchi Cardiovascular: RRR, no significant murmur, no rub Gastrointestinal: soft, non-tender, no distention, positive bowel sounds Musculoskeletal: no edema, pulses present Neurological: non-focal, normal sensation, moves all 4 limbs Lymphatic: no nodes Psychiatric: normal affect Skin: no rash, normal turgor Dx/Plan (1) Acute encephalopathy Code(s): G93.40 - ENCEPHALOPATHY, UNSPECIFIED Status: Acute (2) CAP (community acquired pneumonia) Code(s): J18.9 - PNEUMONIA, UNSPECIFIED ORGANISM Status: Acute Qualifiers: Laterality: left Lung location: upper lobe of lung Qualified Code(s): J18.1 - Lobar pneumonia, unspecified organism (3) Demand ischemia Code(s): I24.8 - OTHER FORMS OF ACUTE ISCHEMIC HEART DISEASE Status: Acute (4) Hypokalemia Code(s): E87.6 - HYPOKALEMIA Status: Acute (5) Alzheimer's dementia Code(s): G30.9 - ALZHEIMER'S DISEASE, UNSPECIFIED; F02.80 - DEMENTIA IN OTH DISEASES CLASSD ELSWHR W/O BEHAVRL DISTURB Status: Chronic (6) Anxiety and depression Code(s): F41.8 - OTHER SPECIFIED ANXIETY DISORDERS Status: Chronic (7) Dyslipidemia Code(s): E78.5 - HYPERLIPIDEMIA, UNSPECIFIED Status: Chronic (8) HTN (hypertension) Code(s): I10 - ESSENTIAL (PRIMARY) HYPERTENSION Status: Chronic (9) Hypothyroidism Code(s): E03.9 - HYPOTHYROIDISM, UNSPECIFIED Status: Chronic (10) Macrocytic anemia Code(s): D53.9 - NUTRITIONAL ANEMIA, UNSPECIFIED Status: Chronic (11) Tobacco abuse Code(s): Z72.0 - TOBACCO USE Status: Chronic (12) CVA (cerebral vascular accident) Code(s): I63.9 - CEREBRAL INFARCTION, UNSPECIFIED Status: Suspected - Plan cont current plan of care, plan discussed w/ family, continue antibiotics, PT/OT , speech therapy * continue current treatment plan with antibiotics * start diet after ST * medication reviewed as below * Symptomatic treatment * family prefer her to go home with home health upon discharge. Review of Systems - Review of Systems Constitutional: negative: fever, chills, sweats, weakness, malaise, other ENT: negative: Ear Pain, Ear Discharge, Nose Pain, Nose Discharge, Nose Congestion, Mouth Pain, Mouth Swelling, Throat Pain, Throat Swelling, Other Respiratory: negative: Cough, Dry, Shortness of Breath, Hemoptysis, SOB with Excertion, Pleuritic Pain, Sputum, Wheezing Cardiovascular: negative: chest pain, palpitations, orthopnea, paroxysmal nocturnal dyspnea, edema, light headedness, other Gastrointestinal: negative: Nausea, Vomiting, Abdominal Pain, Diarrhea, Constipation, Melena, Hematochezia, Other Genitourinary: negative: Dysuria, Frequency, Incontinence, Hematuria, Retention , Other Musculoskeletal: negative: Neck Pain, Shoulder Pain, Arm Pain, Back Pain, Hand Pain, Leg Pain, Foot Pain, Other Skin: negative: Rash, Lesions, Anthony, Bruising, Other - Medications/Allergies Allergies/Adverse Reactions: Allergies Allergy/AdvReac Type Severity Reaction Status Date / Time No Allergy Information Allergy Verified 10/26/17 01:36 Available Medications: Current Medications Acetaminophen (Tylenol) 650 mg PO Q4H PRN PRN Reason: Headache/Fever or Pain Hydrocodone Bitart/Acetaminophen ([place] 5/325) 1 tab PO Q4H PRN PRN Reason: Moderate Pain (4-6) Al Hydroxide/Mg Hydroxide (Maalox) 30 ml PO Q6H PRN PRN Reason: Heartburn or Indigestion Albuterol/Ipratropium (Duoneb) 3 ml NEB [id number] [facility] Last Admin: 10/28/17 07:17 Dose: 3 ml Alprazolam (Xanax) 0.25 mg PO BIDPRN PRN PRN Reason: Anxiety Aspirin (Aspirin) 325 mg PO DAILY [facility] Last Admin: 10/27/17 10:21 Dose: Not Given Atorvastatin Calcium (Lipitor) 10 mg PO HS [facility] Last Admin: 10/27/17 21:42 Dose: Not Given Cholecalciferol (Vitamin D3) 1,000 units PO DAILY [facility] Last Admin: 10/27/17 10:21 Dose: Not Given Cyanocobalamin (Vitamin B-12) 1,000 mcg PO DAILY [facility] Last Admin: 10/27/17 10:22 Dose: Not Given Docusate Sodium (Colace) 100 mg PO BID [facility] Last Admin: 10/27/17 21:42 Dose: Not Given Donepezil HCl (Aricept) 10 mg PO DAILY [facility] Last Admin: 10/27/17 10:22 Dose: Not Given Enoxaparin Sodium (Lovenox) 40 mg SC 0900 [facility] Last Admin: 10/27/17 10:28 Dose: 40 mg Famotidine (Pepcid) 20 mg PO DAILY [facility] Last Admin: 10/27/17 10:22 Dose: Not Given Folic Acid (Folvite) 1 mg PO DAILY [facility] Last Admin: 10/27/17 10:23 Dose: Not Given Levofloxacin 500 mg/ Device 100 mls @ 100 mls/hr IVPB 0200 [facility] Last Admin: 10/28/17 02:51 Dose: Not Given Ceftriaxone Sodium 1 gm/ (Syringe 0.4 ml/ Sterile Water) 10 mls @ 120 mls/hr SLOW IVP 2200 [facility] Last Admin: 10/27/17 21:43 Dose: Not Given Dextrose/Sodium Chloride (D5 1/2 Ns) 1,000 mls @ 50 mls/hr IV .Q20H [facility] Last Admin: 10/28/17 05:16 Dose: Not Given Vancomycin HCl 1 gm/ Device 200 mls @ 200 mls/hr IVPB 1100 [facility] Last Admin: 03/04/18 13:35 Dose: 200 mls Iron/Minerals/Multivitamins (Theragran M) 1 tab PO DAILY [facility] Last Admin: 10/27/17 10:23 Dose: Not Given Levothyroxine Sodium (Synthroid) 25 mcg PO 0600 [facility] Last Admin: 10/28/17 05:15 Dose: Not Given Loperamide HCl (Imodium) 2 mg PO PRN PRN PRN Reason: Diarrhea/Loose Stools Magnesium Hydroxide (Milk Of Magnesium) 30 ml PO DAILYPRN PRN PRN Reason: Constipation Memantine (Namenda) 5 mg PO BID [facility] Last Admin: 10/27/17 21:42 Dose: Not Given Metoprolol Succinate (Toprol Xl) 100 mg PO DAILY [facility] Last Admin: 10/27/17 10:23 Dose: Not Given Miscellaneous Medication (Pharmacy To Dose) 1 each IVPB DAILYPRN PRN PRN Reason: LABS Ondansetron HCl (Zofran) 4 mg IVP Q6H PRN PRN Reason: Nausea/Vomiting Senna (Senokot) 2 tab PO HSPRN PRN PRN Reason: Constipation Sertraline HCl (Zoloft) 100 mg PO QAM [facility] Last Admin: 10/27/17 10:23 Dose: Not Given Trospium (Trospium) 20 mg PO BID [facility] Last Admin: 10/27/17 21:42 Dose: Not Given
[2017-10-28] MEDS: Donepezil HCl 10 MG TAB PO SCH (10:18)
[2017-10-28] MEDS: Famotidine 20 MG TAB PO SCH (10:18)
[2017-10-28] MEDS: Aspirin 325 MG TAB PO SCH (10:18)
[2017-10-28] MEDS: Multivitamin W/ Minerals 1 TAB PO SCH ×2 (10:19→10:32)
[2017-10-28] MEDS: Docusate 100 MG CAP PO SCH ×2 (10:19→21:18)
[2017-10-28] MEDS: Folic Acid 1 MG TAB PO SCH (10:20)
[2017-10-28] MEDS: Enoxaparin Sodium 40 MG/0.4 ML SYRINGE SC SCH (10:20)
[2017-10-28] MEDS: TROSPIUM 20 MG TABLET PO SCH ×2 (10:20→21:19)
[2017-10-28] MEDS: Cyanocobalamin (Vitamin B-12) 1,000 MCG TAB PO SCH (10:20)
--- NOTE | 2017-10-28 11:28 | EKG ---
Test Reason : STAT Blood Pressure : / mmHG Vent. Rate : 074 BPM Atrial Rate : 074 BPM P-R Int : 246 ms QRS Dur : 086 ms QT Int : 398 ms P-R-T Axes : 084 071 052 degrees QTc Int : 441 ms Sinus rhythm with 1st degree A-V block Septal infarct (cited on or before 25-OCT-2017) Significant interference artifact Abnormal ECG When compared with ECG of 25-OCT-2017 23:44, Serial changes of evolving Septal infarct Present Confirmed by DR. Geoffrey THAYER ([id number]) on 10/28/2017 11:28:10 AM Referred By: Confirmed By:DR. Geoffrey THAYER
[2017-10-28] MEDS: Vancomycin HCl 1 GM in Premix Bag 1 BAG IVPB SCH (11:42)
[2017-10-28] MEDS: cefTRIAXone\\ROCEPHIN 1 GM, Syringe 0.4 ML in Sterile Water 9.6 ML SLOW IVP SCH (12:55)
[2017-10-28] MEDS: Acetaminophen 325 MG TAB PO PRN ×2 (13:04→19:33)
[2017-10-28] MEDS: Atorvastatin Calcium 10 MG TAB PO SCH (21:18)
[2017-10-29] MEDS: Levothyroxine Sodium 25 MCG TAB PO SCH (06:15)
[2017-10-29] MEDS: Donepezil HCl 10 MG TAB PO SCH (09:16)
[2017-10-29] MEDS: Famotidine 20 MG TAB PO SCH (09:16)
[2017-10-29] MEDS: Aspirin 325 MG TAB PO SCH (09:17)
[2017-10-29] MEDS: Multivitamin W/ Minerals 1 TAB PO SCH (09:17)
[2017-10-29] MEDS: Docusate 100 MG CAP PO SCH ×2 (09:17→21:20)
[2017-10-29] MEDS: Folic Acid 1 MG TAB PO SCH (09:17)
[2017-10-29] MEDS: Enoxaparin Sodium 40 MG/0.4 ML SYRINGE SC SCH (09:18)
[2017-10-29] MEDS: TROSPIUM 20 MG TABLET PO SCH ×2 (09:18→21:20)
[2017-10-29] MEDS: Cyanocobalamin (Vitamin B-12) 1,000 MCG TAB PO SCH (09:18)
[2017-10-29] MEDS: Vancomycin HCl 1 GM in Premix Bag 1 BAG IVPB SCH (09:19)
[2017-10-29] MEDS: Acetaminophen 325 MG TAB PO PRN (09:21)
[2017-10-29 09:53] LABS: Anisocytosis MODERATE=16-30 cells (100X) (0-5/hpf); Band 15 % (5-11); Eosinophils 7 % (0-10); Hemoglobin 7.8 g/dL (12.0-16.0); Lymphocytes 18 % (21-51); MDiff Complete? YES; Mean Corpuscular HGB CONC 33.3 g/dL (32.0-36.0); Mean Corpuscular Hemoglobin 34.2 pg (27.0-31.0); Mean Platelet Volume 7.8 fL (7.4-10.4); Metamyelocyte 1 % (0-0); Monocytes 13 % (0-10); Myelocyte 3 % (0-0); Neutrophil 43 % (42-75); Nucleated RBC 1 % (0); Ovalocytes SLIGHT = 2-5 cells (100X) (0-1/hpf); PLT Morphology Comment Appears Adequate; Platelet Count 331 thou/uL (130-400); Polychromasia MODERATE = 3-4 cells (100X) (0-2/hpf); RBC Distribution Width 25.4 % (11.5-14.5); Tear Drops SLIGHT = 2-5 cells (100X) (0-1/hpf); White Blood Cell (WBC) Count 12.3 thou/uL (4.8-10.8)
[2017-10-29 10:11] LABS: Vancomycin, Trough 8.7 ug/mL
--- NOTE | 2017-10-29 11:35 | PDOC.PN ---
- Subjective Encounter Start Date: 10/29/17 Encounter Start Time: 07:00 pt is continue to improve, but her apatite is poor, no fever, no cough no further encephalopathy - Objective MAR Reviewed: Yes Vital Signs & Weight: Vital Signs (12 hours) Temp Pulse Resp BP Pulse Ox 10/29/17 08:00 98.5 F 85 19 93 L 10/29/17 07:53 98.5 F 85 19 193/84 H 93 L 10/29/17 06:52 93 L 10/29/17 06:50 72 16 93 L 10/29/17 04:00 98.8 F 81 20 139/61 92 L 10/29/17 02:37 95 10/29/17 01:23 83 16 90 L 10/29/17 00:00 98.6 F 90 20 167/77 H 96 Weight Weight 144 lb 9.6 oz I&O: 10/28/17 10/29/17 10/30/17 06:59 06:59 06:59 Intake Total 30 360 Output Total 550 Balance 30 -190 Result Diagrams: 10/29/17 09:10 10/28/17 04:44 EKG Reviewed by me: Yes Phys Exam - Physical Examination Constitutional: NAD HEENT: PERRLA, moist MMs, sclera anicteric Neck: no JVD, supple Respiratory: no wheezing, no rales, no rhonchi Cardiovascular: RRR, no significant murmur, no rub Gastrointestinal: soft, non-tender, no distention, positive bowel sounds Musculoskeletal: no edema, pulses present Neurological: non-focal, normal sensation, moves all 4 limbs Lymphatic: no nodes Psychiatric: normal affect Skin: no rash, normal turgor Dx/Plan (1) Acute encephalopathy Code(s): G93.40 - ENCEPHALOPATHY, UNSPECIFIED Status: Resolved (2) CAP (community acquired pneumonia) Code(s): J18.9 - PNEUMONIA, UNSPECIFIED ORGANISM Status: Acute Qualifiers: Laterality: left Lung location: upper lobe of lung Qualified Code(s): J18.1 - Lobar pneumonia, unspecified organism (3) Demand ischemia Code(s): I24.8 - OTHER FORMS OF ACUTE ISCHEMIC HEART DISEASE Status: Acute (4) Hypokalemia Code(s): E87.6 - HYPOKALEMIA Status: Acute (5) Alzheimer's dementia Code(s): G30.9 - ALZHEIMER'S DISEASE, UNSPECIFIED; F02.80 - DEMENTIA IN OTH DISEASES CLASSD ELSWHR W/O BEHAVRL DISTURB Status: Chronic (6) Anxiety and depression Code(s): F41.8 - OTHER SPECIFIED ANXIETY DISORDERS Status: Chronic (7) Dyslipidemia Code(s): E78.5 - HYPERLIPIDEMIA, UNSPECIFIED Status: Chronic (8) HTN (hypertension) Code(s): I10 - ESSENTIAL (PRIMARY) HYPERTENSION Status: Chronic (9) Hypothyroidism Code(s): E03.9 - HYPOTHYROIDISM, UNSPECIFIED Status: Chronic (10) Macrocytic anemia Code(s): D53.9 - NUTRITIONAL ANEMIA, UNSPECIFIED Status: Chronic (11) Tobacco abuse Code(s): Z72.0 - TOBACCO USE Status: Chronic (12) CVA (cerebral vascular accident) Code(s): I63.9 - CEREBRAL INFARCTION, UNSPECIFIED Status: Suspected - Plan cont current plan of care, plan discussed w/ family, continue antibiotics, PT/OT * continue rocephin, levaquin and vancomycin * repeat cbc tomorrow * continue PT * expecting discharge tomorrow. Review of Systems - Review of Systems ENT: negative: Ear Pain, Ear Discharge, Nose Pain, Nose Discharge, Nose Congestion, Mouth Pain, Mouth Swelling, Throat Pain, Throat Swelling, Other Respiratory: negative: Cough, Dry, Shortness of Breath, Hemoptysis, SOB with Excertion, Pleuritic Pain, Sputum, Wheezing Cardiovascular: negative: chest pain, palpitations, orthopnea, paroxysmal nocturnal dyspnea, edema, light headedness, other Gastrointestinal: negative: Nausea, Vomiting, Abdominal Pain, Diarrhea, Constipation, Melena, Hematochezia, Other Genitourinary: negative: Dysuria, Frequency, Incontinence, Hematuria, Retention , Other Musculoskeletal: negative: Neck Pain, Shoulder Pain, Arm Pain, Back Pain, Hand Pain, Leg Pain, Foot Pain, Other Skin: negative: Rash, Lesions, Anthony, Bruising, Other - Medications/Allergies Allergies/Adverse Reactions: Allergies Allergy/AdvReac Type Severity Reaction Status Date / Time No Allergy Information Allergy Verified 10/26/17 01:36 Available Medications: Current Medications Acetaminophen (Tylenol) 650 mg PO Q4H PRN PRN Reason: Headache/Fever or Pain Last Admin: 10/29/17 09:21 Dose: 650 mg Hydrocodone Bitart/Acetaminophen ([place] 5/325) 1 tab PO Q4H PRN PRN Reason: Moderate Pain (4-6) Al Hydroxide/Mg Hydroxide (Maalox) 30 ml PO Q6H PRN PRN Reason: Heartburn or Indigestion Albuterol/Ipratropium (Duoneb) 3 ml NEB [id number] [facility] Last Admin: 10/29/17 06:50 Dose: 3 ml Alprazolam (Xanax) 0.25 mg PO BIDPRN PRN PRN Reason: Anxiety Aspirin (Aspirin) 325 mg PO DAILY [facility] Last Admin: 10/29/17 09:17 Dose: 325 mg Atorvastatin Calcium (Lipitor) 10 mg PO HS [facility] Last Admin: 10/28/17 21:18 Dose: 10 mg Cholecalciferol (Vitamin D3) 1,000 units PO DAILY [facility] Last Admin: 10/29/17 09:17 Dose: 1,000 units Cyanocobalamin (Vitamin B-12) 1,000 mcg PO DAILY [facility] Last Admin: 10/29/17 09:18 Dose: 1,000 mcg Docusate Sodium (Colace) 100 mg PO BID [facility] Last Admin: 10/29/17 09:17 Dose: 100 mg Donepezil HCl (Aricept) 10 mg PO DAILY [facility] Last Admin: 10/29/17 09:16 Dose: 10 mg Enoxaparin Sodium (Lovenox) 40 mg SC 0900 [facility] Last Admin: 10/29/17 09:18 Dose: 40 mg Famotidine (Pepcid) 20 mg PO DAILY [facility] Last Admin: 10/29/17 09:16 Dose: 20 mg Folic Acid (Folvite) 1 mg PO DAILY [facility] Last Admin: 10/29/17 09:17 Dose: 1 mg Ceftriaxone Sodium 1 gm/ (Syringe 0.4 ml/ Sterile Water) 10 mls @ 120 mls/hr SLOW IVP 1230 [facility] Last Admin: 10/28/17 12:55 Dose: 10 mls Levofloxacin 500 mg/ Device 100 mls @ 100 mls/hr IVPB 1300 [facility] Last Admin: 10/28/17 12:58 Dose: 100 mls Vancomycin HCl 750 mg/ Sodium (Chloride) 250 mls @ 250 mls/hr IVPB 1100,2300 [facility] Iron/Minerals/Multivitamins (Theragran M) 1 tab PO DAILY [facility] Last Admin: 10/29/17 09:17 Dose: 1 tab Levothyroxine Sodium (Synthroid) 25 mcg PO 0600 [facility] Last Admin: 10/29/17 06:15 Dose: 25 mcg Loperamide HCl (Imodium) 2 mg PO PRN PRN PRN Reason: Diarrhea/Loose Stools Magnesium Hydroxide (Milk Of Magnesium) 30 ml PO DAILYPRN PRN PRN Reason: Constipation Memantine (Namenda) 5 mg PO BID [facility] Last Admin: 10/29/17 09:18 Dose: 5 mg Metoprolol Succinate (Toprol Xl) 100 mg PO DAILY [facility] Last Admin: 10/29/17 09:16 Dose: 100 mg Miscellaneous Medication (Pharmacy To Dose) 1 each IVPB DAILYPRN PRN PRN Reason: LABS Ondansetron HCl (Zofran) 4 mg IVP Q6H PRN PRN Reason: Nausea/Vomiting Senna (Senokot) 2 tab PO HSPRN PRN PRN Reason: Constipation Sertraline HCl (Zoloft) 100 mg PO QAM [facility] Last Admin: 10/29/17 09:17 Dose: 100 mg Trospium (Trospium) 20 mg PO BID [facility] Last Admin: 10/29/17 09:18 Dose: 20 mg
[2017-10-29] MEDS: Vancomycin HCl 750 MG in Sodium Chloride 0.9% 250 ML 250 ML IVPB SCH ×2 (11:36→22:31)
[2017-10-29] MEDS: cefTRIAXone\\ROCEPHIN 1 GM, Syringe 0.4 ML in Sterile Water 9.6 ML SLOW IVP SCH (13:35)
[2017-10-29] MEDS: Atorvastatin Calcium 10 MG TAB PO SCH (21:20)
[2017-10-30] MEDS: Levothyroxine Sodium 25 MCG TAB PO SCH (05:28)
[2017-10-30 06:12] LABS: Anisocytosis MODERATE=16-30 cells (100X) (0-5/hpf); Band 7 % (5-11); Eosinophils 5 % (0-10); Hemoglobin 8.6 g/dL (12.0-16.0); Lymphocytes 31 % (21-51); MDiff Complete? YES; Macrocytosis SLIGHT = 6-15 cells (100X) (0-5/hpf); Mean Corpuscular HGB CONC 32.7 g/dL (32.0-36.0); Mean Platelet Volume 7.8 fL (7.4-10.4); Monocytes 5 % (0-10); Neutrophil 52 % (42-75); Nucleated RBC 3 % (0); Platelet Count 374 thou/uL (130-400); Polychromasia SLIGHT = 2-3 cells (100X) (0-2/hpf); RBC Distribution Width 25.6 % (11.5-14.5); Red Blood Cell (RBC) Count 2.51 mill/uL (4.20-5.40); White Blood Cell (WBC) Count 12.6 thou/uL (4.8-10.8)
[2017-10-30] MEDS: Cyanocobalamin (Vitamin B-12) 1,000 MCG TAB PO SCH (09:01)
[2017-10-30] MEDS: Enoxaparin Sodium 40 MG/0.4 ML SYRINGE SC SCH (09:01)
[2017-10-30] MEDS: Aspirin 325 MG TAB PO SCH (09:01)
[2017-10-30] MEDS: Docusate 100 MG CAP PO SCH ×2 (09:01→20:43)
[2017-10-30] MEDS: Donepezil HCl 10 MG TAB PO SCH (09:01)
[2017-10-30] MEDS: Multivitamin W/ Minerals 1 TAB PO SCH (09:02)
[2017-10-30] MEDS: TROSPIUM 20 MG TABLET PO SCH ×2 (09:02→20:43)
[2017-10-30] MEDS: Famotidine 20 MG TAB PO SCH (09:02)
[2017-10-30] MEDS: Folic Acid 1 MG TAB PO SCH (09:02)
--- NOTE | 2017-10-30 10:11 | PDOC.PN ---
- Subjective Encounter Start Date: 10/30/17 Encounter Start Time: 07:00 did not sleep last night, now this morning sleepy and confused wbc improving but bandemia is still high no fever - Objective MAR Reviewed: Yes Vital Signs & Weight: Vital Signs (12 hours) Temp Pulse Resp BP Pulse Ox 10/30/17 08:00 99.3 F 79 18 182/87 H 95 10/30/17 06:45 81 18 91 L 10/30/17 05:26 165/77 H 10/30/17 04:00 97.4 F L 81 14 169/82 H 94 L 10/29/17 23:29 97.7 F 83 14 117/66 92 L 10/29/17 22:43 81 16 95 Weight Weight 146 lb 12.8 oz I&O: 10/29/17 10/30/17 10/31/17 06:59 06:59 06:59 Intake Total 360 140 Output Total 550 Balance -190 140 Result Diagrams: 10/30/17 04:49 10/28/17 04:44 EKG Reviewed by me: Yes Phys Exam - Physical Examination Constitutional: NAD HEENT: PERRLA, sclera anicteric dry MM Neck: no JVD, supple Respiratory: no wheezing, no rales, no rhonchi Cardiovascular: RRR, no significant murmur Gastrointestinal: soft, non-tender, no distention, positive bowel sounds Musculoskeletal: no edema, pulses present Neurological: moves all 4 limbs Lymphatic: no nodes Psychiatric: normal affect Skin: no rash, normal turgor Dx/Plan (1) Acute encephalopathy Code(s): G93.40 - ENCEPHALOPATHY, UNSPECIFIED Status: Acute Comment: on and off (2) CAP (community acquired pneumonia) Code(s): J18.9 - PNEUMONIA, UNSPECIFIED ORGANISM Status: Acute Qualifiers: Laterality: left Lung location: upper lobe of lung Qualified Code(s): J18.1 - Lobar pneumonia, unspecified organism (3) Demand ischemia Code(s): I24.8 - OTHER FORMS OF ACUTE ISCHEMIC HEART DISEASE Status: Acute (4) Hypokalemia Code(s): E87.6 - HYPOKALEMIA Status: Acute (5) Alzheimer's dementia Code(s): G30.9 - ALZHEIMER'S DISEASE, UNSPECIFIED; F02.80 - DEMENTIA IN OTH DISEASES CLASSD ELSWHR W/O BEHAVRL DISTURB Status: Chronic (6) Anxiety and depression Code(s): F41.8 - OTHER SPECIFIED ANXIETY DISORDERS Status: Chronic (7) Dyslipidemia Code(s): E78.5 - HYPERLIPIDEMIA, UNSPECIFIED Status: Chronic (8) HTN (hypertension) Code(s): I10 - ESSENTIAL (PRIMARY) HYPERTENSION Status: Chronic (9) Hypothyroidism Code(s): E03.9 - HYPOTHYROIDISM, UNSPECIFIED Status: Chronic (10) Macrocytic anemia Code(s): D53.9 - NUTRITIONAL ANEMIA, UNSPECIFIED Status: Chronic (11) Tobacco abuse Code(s): Z72.0 - TOBACCO USE Status: Chronic (12) CVA (cerebral vascular accident) Code(s): I63.9 - CEREBRAL INFARCTION, UNSPECIFIED Status: Suspected - Plan cont current plan of care, plan discussed w/ family, continue antibiotics * repeat chest xray * continue iv antibiotics, rocephin, levaquin and vancomycin * medication reviewed as below * symptomatic treatment. * repeat labs tomorrow Review of Systems - Review of Systems Other: unable to review with pt today due to her level of cognitive status - Medications/Allergies Allergies/Adverse Reactions: Allergies Allergy/AdvReac Type Severity Reaction Status Date / Time No Allergy Information Allergy Verified 10/26/17 01:36 Available Medications: Current Medications Acetaminophen (Tylenol) 650 mg PO Q4H PRN PRN Reason: Headache/Fever or Pain Last Admin: 10/29/17 09:21 Dose: 650 mg Hydrocodone Bitart/Acetaminophen ([place] 5/325) 1 tab PO Q4H PRN PRN Reason: Moderate Pain (4-6) Al Hydroxide/Mg Hydroxide (Maalox) 30 ml PO Q6H PRN PRN Reason: Heartburn or Indigestion Albuterol/Ipratropium (Duoneb) 3 ml NEB [id number] [facility] Last Admin: 10/30/17 06:45 Dose: 3 ml Alprazolam (Xanax) 0.25 mg PO BIDPRN PRN PRN Reason: Anxiety Aspirin (Aspirin) 325 mg PO DAILY [facility] Last Admin: 10/30/17 09:01 Dose: 325 mg Atorvastatin Calcium (Lipitor) 10 mg PO HS [facility] Last Admin: 10/29/17 21:20 Dose: 10 mg Cholecalciferol (Vitamin D3) 1,000 units PO DAILY [facility] Last Admin: 10/30/17 09:01 Dose: 1,000 units Cyanocobalamin (Vitamin B-12) 1,000 mcg PO DAILY [facility] Last Admin: 10/30/17 09:01 Dose: 1,000 mcg Docusate Sodium (Colace) 100 mg PO BID [facility] Last Admin: 10/30/17 09:01 Dose: 100 mg Donepezil HCl (Aricept) 10 mg PO DAILY [facility] Last Admin: 10/30/17 09:01 Dose: 10 mg Enoxaparin Sodium (Lovenox) 40 mg SC 09 [facility] Last Admin: 10/30/17 09:01 Dose: 40 mg Famotidine (Pepcid) 20 mg PO DAILY [facility] Last Admin: 10/30/17 09:02 Dose: 20 mg Folic Acid (Folvite) 1 mg PO DAILY [facility] Last Admin: 10/30/17 09:02 Dose: 1 mg Ceftriaxone Sodium 1 gm/ (Syringe 0.4 ml/ Sterile Water) 10 mls @ 120 mls/hr SLOW IVP 1230 [facility] Last Admin: 10/29/17 13:35 Dose: 10 mls Levofloxacin 500 mg/ Device 100 mls @ 100 mls/hr IVPB 1300 [facility] Last Admin: 10/29/17 13:35 Dose: 100 mls Vancomycin HCl 750 mg/ Sodium (Chloride) 250 mls @ 250 mls/hr IVPB 1100,2300 [facility] Last Admin: 10/29/17 22:31 Dose: 250 mls Iron/Minerals/Multivitamins (Theragran M) 1 tab PO DAILY [facility] Last Admin: 10/30/17 09:02 Dose: 1 tab Levothyroxine Sodium (Synthroid) 25 mcg PO 0600 [facility] Last Admin: 10/30/17 05:28 Dose: 25 mcg Loperamide HCl (Imodium) 2 mg PO PRN PRN PRN Reason: Diarrhea/Loose Stools Magnesium Hydroxide (Milk Of Magnesium) 30 ml PO DAILYPRN PRN PRN Reason: Constipation Memantine (Namenda) 5 mg PO BID [facility] Last Admin: 10/30/17 09:02 Dose: 5 mg Metoprolol Succinate (Toprol Xl) 100 mg PO DAILY [facility] Last Admin: 10/30/17 09:02 Dose: 100 mg Miscellaneous Medication (Pharmacy To Dose) 1 each IVPB DAILYPRN PRN PRN Reason: LABS Ondansetron HCl (Zofran) 4 mg IVP Q6H PRN PRN Reason: Nausea/Vomiting Quetiapine Fumarate (Seroquel) 25 mg PO [facility] Last Admin: 10/29/17 21:20 Dose: 25 mg Senna (Senokot) 2 tab PO HSPRN PRN PRN Reason: Constipation Sertraline [facility] ([facility]ft) [facility] Last Admin: 10/30/17 09:02 Dose: 100 mg Trospium (Trospium) 20 mg PO BID [facility] Last Admin: 10/30/17 09:02 Dose: 20 mg
--- NOTE | 2017-10-30 12:05 | RAD ---
PORTABLE CHEST 1 VIEW: DATE: 10/30/17. TIME: 10:3 a.m. HISTORY: Pneumonia, followup. FINDINGS: Comparison is made with the exam of 10/25/17. The heart size is enlarged. The patchy opacity in the left mid lung is again seen. New patchy area of increased density is seen in the right medial lung base. No pneumothoraces or large effusions are identified. There is mild pulmonary vascular congestion. IMPRESSION: 1. Findings suggestive of new right-sided pneumonia. 2. Stable left-sided pneumonia. POS: [facility]
[2017-10-30] MEDS: Vancomycin HCl 750 MG in Sodium Chloride 0.9% 250 ML 250 ML IVPB SCH (13:12)
[2017-10-30] MEDS: cefTRIAXone\\ROCEPHIN 1 GM, Syringe 0.4 ML in Sterile Water 9.6 ML SLOW IVP SCH (15:16)
[2017-10-30] MEDS: Atorvastatin Calcium 10 MG TAB PO SCH (20:43)
[2017-10-30] MEDS: Acetaminophen 325 MG TAB PO PRN (20:44)
[2017-10-31 00:12] VITALS: TEMP 98.8
[2017-10-31] MEDS: Vancomycin HCl 750 MG in Sodium Chloride 0.9% 250 ML 250 ML IVPB SCH (02:27)
[2017-10-31] MEDS ORDERED: Vancomycin HCl 1.25 GM in Sodium Chloride 0.9% 250 ML 250 ML IVPB SCH (04:00)
[2017-10-31] MEDS: Levothyroxine Sodium 25 MCG TAB PO SCH (06:05)
[2017-10-31 07:52] LABS: #Basophils 0.1 thou/uL (0.0-0.2); #Eosinphils 1.1 thou/uL (0.0-0.7); #Lymphocytes 2.2 thou/uL (1.20-3.40); #Monocytes 1.2 thou/uL (0.11-0.59); #Neutrophils 4.7 thou/uL (1.40-6.50); %Basophils 0.9 % (0.0-1.0); %Eosinophils 11.5 % (0.0-10.0); %Lymphocytes 24.4 % (21.0-51.0); %Monocytes 12.5 % (0.0-10.0); %Neutrophils 50.7 % (42.0-75.0); Hemoglobin 7.9 g/dL (12.0-16.0); Mean Corpuscular Hemoglobin 34.2 pg (27.0-31.0); Mean Platelet Volume 8.4 fL (7.4-10.4); Platelet Count 336 thou/uL (130-400); RBC Distribution Width 26.3 % (11.5-14.5); Red Blood Cell (RBC) Count 2.31 mill/uL (4.20-5.40); White Blood Cell (WBC) Count 9.2 thou/uL (4.8-10.8)
[2017-10-31] MEDS: Aspirin 325 MG TAB PO SCH (07:54)
[2017-10-31] MEDS: TROSPIUM 20 MG TABLET PO SCH (07:55)
[2017-10-31] MEDS: Famotidine 20 MG TAB PO SCH (07:56)
[2017-10-31] MEDS: Docusate 100 MG CAP PO SCH (07:56)
[2017-10-31] MEDS: Multivitamin W/ Minerals 1 TAB PO SCH (07:57)
[2017-10-31] MEDS: Donepezil HCl 10 MG TAB PO SCH (07:57)
[2017-10-31] MEDS: Cyanocobalamin (Vitamin B-12) 1,000 MCG TAB PO SCH (07:57)
[2017-10-31] MEDS: Folic Acid 1 MG TAB PO SCH (07:57)
[2017-10-31] MEDS: Enoxaparin Sodium 40 MG/0.4 ML SYRINGE SC SCH (07:58)
[2017-10-31 09:25] LABS: MDiff Complete? YES; Macrocytosis SLIGHT = 6-15 cells (100X) (0-5/hpf); Polychromasia MODERATE = 3-4 cells (100X) (0-2/hpf)
--- NOTE | 2017-10-31 09:43 | PDOC.PN ---
- Subjective Encounter Start Date: 10/31/17 Encounter Start Time: 07:00 -: old records requested/rev Patient seen and examined. No new complaints. No overnight events - Objective MAR Reviewed: Yes Vital Signs & Weight: Vital Signs (12 hours) Temp Pulse Resp BP Pulse Ox 10/31/17 09:33 92 L 10/31/17 08:00 98.8 F 67 16 144/79 H 95 10/31/17 07:20 95 10/31/17 07:17 64 18 95 10/31/17 04:00 98.8 F 69 16 144/72 H 95 10/31/17 00:00 98.8 F 73 20 137/70 91 L 10/30/17 23:11 72 14 94 L Weight Weight 144 lb 9.6 oz I&O: 10/30/17 10/31/17 11/01/17 06:59 06:59 06:59 Intake Total 140 1407 Balance 140 1407 Result Diagrams: 10/31/17 07:29 10/28/17 04:44 EKG Reviewed by me: Yes Phys Exam - Physical Examination Constitutional: NAD HEENT: PERRLA, moist MMs, sclera anicteric Neck: no JVD, supple Respiratory: no wheezing, no rales, no rhonchi Cardiovascular: RRR, no significant murmur, no rub Gastrointestinal: soft, non-tender, no distention, positive bowel sounds Musculoskeletal: no edema, pulses present Neurological: non-focal, normal sensation Lymphatic: no nodes Psychiatric: normal affect Skin: no rash, normal turgor Dx/Plan (1) Acute encephalopathy Code(s): G93.40 - ENCEPHALOPATHY, UNSPECIFIED Status: Acute Comment: on and off (2) CAP (community acquired pneumonia) Code(s): J18.9 - PNEUMONIA, UNSPECIFIED ORGANISM Status: Acute Qualifiers: Laterality: left Lung location: upper lobe of lung Qualified Code(s): J18.1 - Lobar pneumonia, unspecified organism (3) Demand ischemia Code(s): I24.8 - OTHER FORMS OF ACUTE ISCHEMIC HEART DISEASE Status: Acute (4) Hypokalemia Code(s): E87.6 - HYPOKALEMIA Status: Acute (5) Alzheimer's dementia Code(s): G30.9 - ALZHEIMER'S DISEASE, UNSPECIFIED; F02.80 - DEMENTIA IN OTH DISEASES CLASSD ELSWHR W/O BEHAVRL DISTURB Status: Chronic (6) Anxiety and depression Code(s): F41.8 - OTHER SPECIFIED ANXIETY DISORDERS Status: Chronic (7) Dyslipidemia Code(s): E78.5 - HYPERLIPIDEMIA, UNSPECIFIED Status: Chronic (8) HTN (hypertension) Code(s): I10 - ESSENTIAL (PRIMARY) HYPERTENSION Status: Chronic (9) Hypothyroidism Code(s): E03.9 - HYPOTHYROIDISM, UNSPECIFIED Status: Chronic (10) Macrocytic anemia Code(s): D53.9 - NUTRITIONAL ANEMIA, UNSPECIFIED Status: Chronic (11) Tobacco abuse Code(s): Z72.0 - TOBACCO USE Status: Chronic (12) CVA (cerebral vascular accident) Code(s): I63.9 - CEREBRAL INFARCTION, UNSPECIFIED Status: Suspected - Plan cont current plan of care, plan discussed w/ family, continue antibiotics * medication reviewed as below * symptomatic treatment * medically stable for discharge * see discharge summery * Dc O2 if Spo2 >92%. Review of Systems - Review of Systems Other: not reliable due to dementia - Medications/Allergies Allergies/Adverse Reactions: Allergies Allergy/AdvReac Type Severity Reaction Status Date / Time No Allergy Information Allergy Verified 10/26/17 01:36 Available Medications: Current Medications Acetaminophen (Tylenol) 650 mg PO Q4H PRN PRN Reason: Headache/Fever or Pain Last Admin: 10/30/17 20:44 Dose: 650 mg Hydrocodone Bitart/Acetaminophen ([place] 5/325) 1 tab PO Q4H PRN PRN Reason: Moderate Pain (4-6) Al Hydroxide/Mg Hydroxide (Maalox) 30 ml PO Q6H PRN PRN Reason: Heartburn or Indigestion Albuterol/Ipratropium (Duoneb) 3 ml NEB [id number] [facility] Last Admin: 10/31/17 07:17 Dose: 3 ml Alprazolam (Xanax) 0.25 mg PO BIDPRN PRN PRN Reason: Anxiety Aspirin (Aspirin) 325 mg PO DAILY [facility] Last Admin: 10/31/17 07:54 Dose: 325 mg Atorvastatin Calcium (Lipitor) 10 mg PO HS [facility] Last Admin: 10/30/17 20:43 Dose: 10 mg Cholecalciferol (Vitamin D3) 1,000 units PO DAILY [facility] Last Admin: 10/31/17 07:57 Dose: 1,000 units Cyanocobalamin (Vitamin B-12) 1,000 mcg PO DAILY [facility] Last Admin: 10/31/17 07:57 Dose: 1,000 mcg Docusate Sodium (Colace) 100 mg PO BID [facility] Last Admin: 10/31/17 07:56 Dose: 100 mg Donepezil HCl (Aricept) 10 mg PO DAILY [facility] Last Admin: 10/31/17 07:57 Dose: 10 mg Enoxaparin Sodium (Lovenox) 40 mg SC 0900 [facility] Last Admin: 10/31/17 07:58 Dose: 40 mg Famotidine (Pepcid) 20 mg PO DAILY [facility] Last Admin: 10/31/17 07:56 Dose: 20 mg Folic Acid (Folvite) 1 mg PO DAILY [facility] Last Admin: 10/31/17 07:57 Dose: 1 mg Ceftriaxone Sodium 1 gm/ (Syringe 0.4 ml/ Sterile Water) 10 mls @ 120 mls/hr SLOW IVP 1230 [facility] Last Admin: 10/30/17 15:16 Dose: 10 mls Levofloxacin 500 mg/ Device 100 mls @ 100 mls/hr IVPB 1300 [facility] Last Admin: 10/30/17 15:16 Dose: 100 mls Vancomycin HCl 1.25 gm/ Sodium (Chloride) 250 mls @ 166.667 mls/hr IVPB 0400 [facility] Last Admin: 10/31/17 03:41 Dose: 250 mls Iron/Minerals/Multivitamins (Theragran M) 1 tab PO DAILY [facility] Last Admin: 10/31/17 07:57 Dose: 1 tab Levothyroxine Sodium (Synthroid) 25 mcg PO 0600 [facility] Last Admin: 10/31/17 06:05 Dose: 25 mcg Loperamide HCl (Imodium) 2 mg PO PRN PRN PRN Reason: Diarrhea/Loose Stools Magnesium Hydroxide (Milk Of Magnesium) 30 ml PO DAILYPRN PRN PRN Reason: Constipation Memantine (Namenda) 5 mg PO BID [facility] Last Admin: 10/31/17 07:55 Dose: 5 mg Metoprolol Succinate (Toprol Xl) 100 mg PO DAILY [facility] Last Admin: 10/31/17 07:55 Dose: 100 mg Miscellaneous Medication (Pharmacy To Dose) 1 each IVPB DAILYPRN PRN PRN Reason: LABS Ondansetron HCl (Zofran) 4 mg IVP Q6H PRN PRN Reason: Nausea/Vomiting Quetiapine Fumarate (Seroquel) 25 mg PO HS [facility] Last Admin: 10/30/17 20:43 Dose: 25 mg Senna (Senokot) 2 tab PO HSPRN PRN PRN Reason: Constipation Sertraline HCl (Zoloft) 100 mg PO QAM [facility] Last Admin: 10/31/17 07:58 Dose: 100 mg Trospium (Trospium) 20 mg PO BID [facility] Last Admin: 10/31/17 07:55 Dose: 20 mg
--- NOTE | 2017-10-31 10:45 | DIS ---
PRIMARY CARE PHYSICIAN: Dr. Danny Sewell DATE OF ADMISSION: 10/27/2017 DATE OF DISCHARGE: 10/31/2017 DISCHARGE DISPOSITION: Home with home health. PRIMARY DISCHARGE DIAGNOSES: 1. Acute encephalopathy. 2. Community-acquired pneumonia. 3. Demand ischemia of myocardium. 4. Hypokalemia, corrected. 5. Sepsis with acute organ dysfunction. SECONDARY DISCHARGE DIAGNOSES: Tobacco abuse disorder, macrocytic anemia, hypothyroidism, hypertensi on, dyslipidemia, anxiety and depression, Alzheimer's dementia. PRIMARY PROCEDURE/OPERATION: None. RADIOLOGICAL INVESTIGATION: CT brain on admission showed lacunar infarct in the right thalamus, barrelhead inspector isrrael small vessel ischemic changes, cerebral volume loss. Chest x-ray on admission showed pneumonia o f left mid lung zone, scoliosis. Repeat CT brain did not show any significant change. MRI brain baldo wed old lacunar infarct in the right thalamus, chronic ischemic white matter changes. Echocardiograp hy showed diastolic dysfunction. Carotid Doppler did not show any stenosis. Repeat chest x-ray show ed pneumonia. SIGNIFICANT LABS: WBC 9.2, hemoglobin 7.9, platelet 336. INR 1.2, sodium 140, potassium 3.5, BUN 14 , creatinine 0.97, calcium 8.6, troponin 0.038, LDL 106. B12, folate and TSH normal. Urinalysis nor mal. Urine and serum drug screen negative. Blood culture and urine culture negative. DISCHARGE MEDICATIONS: Aspirin 81 mg p.o. daily, Lipitor 10 mg p.o. at bedtime, vitamin D3 1000 unit s p.o. daily, vitamin B12 1000 mcg p.o. daily, Colace 100 mg p.o. daily, Aricept 10 mg p.o. daily, do xycycline 100 mg p.o. b.i.d. for 7 days, Pepcid 20 mg p.o. daily, ferrous sulfate 325 mg p.o. daily, folic acid 1 mg p.o. daily, Levaquin 500 mg p.o. daily for 7 days, Synthroid 25 mcg p.o. daily, Namen da 5 mg p.o. b.i.d., Toprol-XL 100 mg p.o. daily, multivitamin 1 tablet p.o. daily, Seroquel 25 mg p. o. at bedtime, Florastor 250 mg p.o. daily, Zoloft 100 mg p.o. daily, trospium 60 mg p.o. daily. CONTRAINDICATIONS: None. CODE STATUS: DNR. INPATIENT CONSULTANTS: Dr. Marsha Forrest was consulted while in hospital. TEST RESULTS PENDING ON DISCHARGE: None. ALLERGIES: No known drug allergy. DISCHARGE PLAN: Post hospital, the patient will follow up with Dr. Danny Sewell in 1 week. Primary care physician requested to repeat chest x-ray upon followup visit. HOSPITAL COURSE: An 82-year-old female who was admitted by me. Please see my HPI for further detail s. The patient was brought to ER by family member for altered mental status. She was diagnosed with a pneumonia based on chest x-ray. She was also having cough at home without any fever or pleuritic chest pain. Initial CT brain did not show any significant process, but a lacunar infarct in the righ t basal ganglia which appeared to be old. This patient has had underlying Alzheimer's dementia. She was initially admitted to telemetry floor for observation, but this patient did not improve. Overni t her condition got deteriorated and she had a code green. She had repeat CT brain which did not s how any new changes. We did MRI brain which also did not show any stroke. We did echocardiography, which showed diastolic dysfunction. Carotid Doppler did not show any stenosis. This patient continued to be altered and that is why we consulted Neurology and Neurology attributed all presentation to Alzheimer dementia with underlying pneumonia and sepsis. The patient did not hav e any improvement in her white count and that is why initially we treated her with Rocephin and Levaq uin, but we have to add vancomycin as well and after continuous antibiotic therapy while in hospital by the time of discharge, her white count improved back to normal. This patient and family member does not have any interest to go to any long-term home or rehab facility. They are interested in going home with home health PT, OT and speech therapy at home. During this admission, we added following medication including Pepcid, ferrous sulfate, folic acid, v itamin B12, aspirin and Lipitor. For her altered mental status the patient had significant improveme nt with the Seroquel. Upon discharge, we changed to levofloxacin and doxycycline for another 7 days. The patient will have repeat chest x-ray upon followup visit with primary care physician. The patient is seen and examined at bedside today. Please see my progress note from today for furthe r detail. Plan of care and discharge plan discussed with the patient's daughter at bedside. The pat ient is medically stable for discharge, but she is at high risk for readmission.
[2017-10-31 11:21] VITALS: BP 157/86
--- NOTE | 2017-11-15 17:51 | PQF ---
JENNIFER GRUBBS, JAIME WILKERSON MD [id number] [facility] [place]-215 [id number] CLINICAL DOCUMENTATION CLARIFICATION FORM: POST DISCHARGE Addendum to original discharge summary date: ____ Late entry note date: __ DATE: 11/15/17 ATTN: Dr. Jaime Hill Please exercise your independent, professional judgment in responding to the clarification form. Clinical indicators are provided on the bottom of this form for your review Please check appropriate box(es): [ ] Sepsis due to: (Pna, UTI, gangrenous gall bladder, etc.) Due to: [ ] Device (please specify) [ ] Implant [ ] Graft [ ] Infusion [ ] SIRS due to non-infectious process (please specify etiology) [ ] with organ dysfunction [ ] without organ dysfunction [ ] Severe sepsis with acute organ dysfunction of: (Examples: respiratory failure, encephalopathy, acute kidney failure, other) [ ] Septic Shock [ ] Localized infection without sepsis [ ] Other diagnosis [x ] Unable to determine In addition, please specify: Present on Admission (POA): [ ] Yes [ ] No [x ] Unable to determine For continuity of documentation, please document condition throughout progress notes and discharge summary. Thank You. CLINICAL INDICATORS - SIGNS / SYMPTOMS / LABS sepsis not met until 10/28 sepsis was it cause for admission or occurred after admit. TREATMENTS: Sepsis is not documented until the discharge summary and it is unclear that sepsis was cause for admission, appears sepsis developed after admission. ER record shows BP 183/69, Pulse 62, Resp 16 and there was no evidence of sepsis noted. When code was called HR 73, Resp 22 and it wasnt until 10/28 (day after admission) that patient developed fever of 100.0, HR 93, Resp 22., WBC 14.6 MTDD
--- NOTE | 2018-02-10 08:01 | PQF ---
JENNIFER GRUBBS, JAIME WILKERSON MD [id number] [facility] [id number] [id number] CLINICAL DOCUMENTATION CLARIFICATION FORM: POST DISCHARGE Addendum to original discharge summary date: ____ Late entry note date: __ DATE: 02/10/18 ATTN: DR. NGUYEN Please exercise your independent, professional judgment in responding to the clarification form. Clinical indicators are provided on the bottom of this form for your review PLEASE STATE IF SEPSIS WAS PRESENT ON ADMISSION OR OCCURED AFTER ADMISSION. Please check appropriate box(es): [ ] Sepsis due to: (Pna, UTI, gangrenous gall bladder, etc.) Due to: [ ] Device (please specify) [ ] Implant [ ] Graft [ ] Infusion [ ] SIRS due to non-infectious process (please specify etiology) [ ] with organ dysfunction [ ] without organ dysfunction [ ] Severe sepsis with acute organ dysfunction of: (Examples: respiratory failure, encephalopathy, acute kidney failure, other) [ ] Septic Shock [ ] Localized infection without sepsis [ ] Other diagnosis [ x ] Unable to determine In addition, please specify: Present on Admission (POA): [ ] Yes [ ] No [ x ] Unable to determine For continuity of documentation, please document condition throughout progress notes and discharge summary. Thank You. CLINICAL INDICATORS - SIGNS / SYMPTOMS / LABS Altered mental status Fever or hypothermia (<96.8 F/36 C or > 100.4 F/38C) RISK FACTORS Infection/Bacteremia Pneumonia TREATMENTS: Initiation Sepsis Protocol ICU Daily CBC Blood/sputum/wound cultures IV antibiotics - broad spectrum IV Fluids Vasopressors, meds ER record shows BP 183/69, Pulse 62, Resp 16. HR 73, Resp 22 Day after admission: 100.0, HR 93, Resp 22., WBC 14.6 (This form is maintained as a part of the permanent medical record) 2014 [employer]. All Rights Reserved [email or web address] [phone] [email or web address]
== END 2017-10-31 12:02 | disposition home health service (06) | DRG 193 ==
LOC: ERS 20:27 → 2NO 22:46 → 2SE 10-26 21:29 → OBSVTOIN 10-27 08:08
PROVIDERS: ADMIT Internal Medicine; ATTEND Internal Medicine
DX: J18.9 Pneumonia, unspecified organism (principal); A41.9 Sepsis, unspecified organism; G93.40 Encephalopathy, unspecified; R65.20 Severe sepsis without septic shock; F02.81 Dementia in other diseases classified elsewhere, unspecified severity, with behavioral disturbance; I24.8 Other forms of acute ischemic heart disease; G30.9 Alzheimer's disease, unspecified; D53.9 Nutritional anemia, unspecified; Z72.0 Tobacco use; Z79.82 Long term (current) use of aspirin; E03.9 Hypothyroidism, unspecified; F41.9 Anxiety disorder, unspecified; F32.9 Major depressive disorder, single episode, unspecified; E87.6 Hypokalemia
CPT/HCPCS: 36415; 36416; 51701; 70450; 70551; 71045; 80048; 80053; 80061; 80202; 80306; 80307; 81003; 82553; 82607; 82746; 83605; 84443; 84484; 85025; 85610; 85730; 86850; 86900; 86901; 87040; 87086; 93005; 93010; 93306; 93880; 94640; 96361; 96374; 99406; A4216; G8978-GP-CJ; G8979-GP-CI; G8987-GO-CL; G8988-GO-CJ; G8996-GN-CJ; G8997-GN-CI; J0456; J0696; J1650; J1956; J2060; J3370; J7050; J7620; S0028

== ENCOUNTER → 2017-11-22 | Day surgery (SDC) | payer MEDICARE ==
[2017-11-21 13:06] VITALS: BMI 25.8
--- NOTE | 2017-11-21 14:11 | HP ---
This is a history and physical on Ms. Sanchez. It is going to be associated with a bronchoscopy that is going to be done tomorrow or the next day. DATE OF SERVICE: 11/21/2017 SERVICE: Pulmonary Medicine. REFERRING PROVIDER: Danny Sewell M.D. REASON FOR CONSULTATION: Pulmonary mass. HISTORY OF PRESENT ILLNESS: The patient is an 82-year-old white female with past medical history significant for advanced dementia. She was recently in the hospital for a pneumonia. Serial chest x-rays after she left the hospital showed that the pneumonia cleared, but there was a pulmonary lesion that did not. She underwent a CT evaluation. This demonstrated a cavitating mass. It is not clear what this thing represents. She has a [id number] history of smoking and quit 1 week ago. She currently denies any shortness of breath, fevers, chills, nausea, or vomiting, and has no known underlying lung disease like asthma or COPD. She has been using inhalers. Prior to her recent hospital stay for pneumonia, she did not have any breathing issues. PAST MEDICAL HISTORY: 1. Dementia, advanced. 2. Anemia. 3. Hypertension. 4. Hypothyroidism. PAST SURGICAL HISTORY: Hysterectomy in 1973. FAMILY HISTORY: Cancer, stroke. SOCIAL HISTORY: She has a [id number] history of smoking and continues to smoke roughly a half a pack on a daily basis. She denies any alcohol or illicit drugs. She has no exposure to chemicals, dust, asbestos, or tuberculosis. ALLERGIES: No known drug allergies. MEDICATIONS: 1. Levothyroxine 25 mcg p.o. daily. 2. Memantine 5 mg p.o. b.i.d. 3. Aricept 10 mg p.o. daily. 4. Metoprolol 100 mg p.o. daily. 5. Sertraline 100 mg p.o. daily. 6. Aspirin 81 mg p.o. daily. 7. Centrum Silver 1 tab p.o. daily. 8. Iron sulfate 325 mg p.o. daily. REVIEW OF SYSTEMS: General, head, ears, eyes, nose, throat, cardiovascular, respiratory, GI, , musculoskeletal, neurologic, and skin is negative except as mentioned in the HPI. PHYSICAL EXAMINATION: VITAL SIGNS: Afebrile, pulse 82, respirations 14, saturation 95% on room air. GENERAL: The patient is awake, alert, in no apparent distress. LUNGS: Decent air entry with no prolonged expiratory phase, wheezing, rhonchi, or crackles. HEART: Normal rate, regular. ABDOMEN: Soft, nontender, nondistended. Bowel sounds positive. MUSCULOSKELETAL: No cyanosis or clubbing. No pitting in the bilateral lower extremities. NEUROLOGIC: Grossly nonfocal. IMAGING: Chest x-rays were reviewed. There was previously a right lower lobe and left upper lobe infiltrate. On repeat chest x-ray, the left upper lobe infiltrate improved somewhat, but still remain present. The right lower lobe infiltrate resolved. This prompted a CT scan. CT of the chest demonstrates a left upper lobe pulmonary mass. It appears to be in the anterolateral segment of the left upper lobe. ASSESSMENT: 1. Pulmonary mass. 2. Recent community-acquired pneumonia. 3. Dementia. PLAN: I will proceed with bronchoscopy after discussing our options moving forward with the patient's daughter. These options include, 1. Perform no investigation: 2. Perform a PET scan, which should direct the biopsy. 3. Perform bronchoscopy, so that we can evaluate for both infection and neoplastic process at the same time. They have elected to proceed with bronchoscopy. We will arrange for this first thing in the morning. I will have her return to clinic in 1 week to discuss the results of this study. 70 minutes have been devoted to this patient in various activities, including interacting with the patient at the bedside or coordinating care with the care team. I personally reviewed all imaging studies and laboratory data noted within this document. ABDULKADIR
[~2017-11-22] MED LIST: Fentanyl 100 MCG/2 ML VIAL ONE; Glycopyrrolate 0.2 MG/ML 5 ML SYRINGE ONE; Lidocaine 1% (PF) 30 ML VIAL ONE; Lidocaine 1% PF 5 ML VIAL ONE; Ondansetron HCl/PF 4 MG/2 ML Vial ONE; PROPOFOL 200 MG/20 ML VIAL ONE; Propofol 500 MG/50 ML VIAL ONE; Succinylcholine Chloride 20 MG/ML 10 ml SYRINGE FS ONE; ePHEDrine/0.9% NaCl/PF SYRINGE 50 mg/10 ml ONE
[2017-11-22 15:41] LABS: BF Color Red; Body Fluid Source Bronchioalveol Lavag; Clarity Cloudy/Turbid (Clear); RBC Background Count 0.001; RBC Count-Automated 166000 /cumm; Tube # EDTA; WBC/NonHematic-Auto 362 /cumm
[2017-11-22 16:41] LABS: BF Segmented Neutrophils 6 %; Cell Count Non Hematic 70 %; Lymphocytes 24 %
--- NOTE | 2017-11-23 00:04 | OP ---
DATE OF SERVICE: 11/22/2017 SERVICE: Pulmonary Medicine. PROCEDURE: Fiberoptic bronchoscopy with: 1. Visual airway inspection. 2. Endobronchial brush from the left upper lobe. 3. Bronchoalveolar lavage of the left upper lobe. 4. Transbronchial biopsies of the left upper lobe. PREPROCEDURE DIAGNOSIS: Pulmonary mass versus infiltrate. POSTPROCEDURE DIAGNOSIS: Pulmonary mass versus infiltrate. PROCEDURE SENIOR TAX MANAGER: Florentin Faulkner M.D. MEDICATIONS: For list of medications, please refer to anesthesia documentation. PREANESTHESIA ASSESSMENT: H and P had been performed. The patient's medications and allergies were reviewed. Informed consent was obtained after discussing risks, benefits, and rationale for performi ng the procedure as well as alternative options. DESCRIPTION OF PROCEDURE: A timeout was performed, identifying the correct procedure and patient wit h name and date of . Diagnostic fiberoptic bronchoscope was introduced through the 8.0 endotrac heal tube. Bronchoscope was advanced into the trachea where tracheobronchial tree inspection was car ried out with clear identification of the right upper lobe, right middle lobe, right lower lobe, left upper lobe, lingula, and left lower lobe. There was a friable mucosa at the opening of the left upp er lobe. Despite that, no specific endobronchial disease was identified. BAL obtained from the left upper lobe. Endobronchial brushings and transbronchial biopsies were obtained from the left upper l obe under fluoroscopic guidance. My sample was obtained from the anterolateral segment of the left u pper lobe. Hemostasis was verified and the bronchoscope was subsequently removed from the patient. Post-procedure fluoroscopy did not demonstrate a pneumothorax. FINDINGS: 1. No endobronchial disease was identified. 2. Secretions were quite minimal and only in the left upper lobe, but were extraordinarily thick and tenacious. SPECIMENS OBTAINED: 1. Pathology on transbronchial biopsies, and brushings. 2. Cytology on BAL. 3. Microbiology on BAL. COMPLICATIONS: None. ESTIMATED BLOOD LOSS: 5 mL. FLUOROSCOPY TIME: 2 minutes. DISPOSITION: The patient will be discharged home with post-procedure instructions when she meets arturo quiñonez. She will return to clinic as previously directed next week.
[2017-11-26 09:56] LABS: Fungus Stain Final report (.)
[2017-12-23 09:10] LABS: Fungus Culture Final report (.)
== END ==
LOC: SDC 08:38
PROVIDERS: ATTEND Internal Medicine
PROC: 0BD88ZX Extraction of Left Upper Lobe Bronchus, Via Natural or Artificial Opening Endoscopic, Diagnostic (ICD-10-PCS; principal; 2017-11-22)
PROC: 0B9G8ZX Drainage of Left Upper Lung Lobe, Via Natural or Artificial Opening Endoscopic, Diagnostic (ICD-10-PCS; 2017-11-22)
PROC: 0BDG8ZX Extraction of Left Upper Lung Lobe, Via Natural or Artificial Opening Endoscopic, Diagnostic (ICD-10-PCS; 2017-11-22)
DX: C34.12 Malignant neoplasm of upper lobe, left bronchus or lung (principal); D64.9 Anemia, unspecified; I10 Essential (primary) hypertension; E03.9 Hypothyroidism, unspecified; J18.9 Pneumonia, unspecified organism; F17.210 Nicotine dependence, cigarettes, uncomplicated; F03.90 Unspecified dementia, unspecified severity, without behavioral disturbance, psychotic disturbance, mood disturbance, and anxiety; Z79.899 Other long term (current) drug therapy; Z79.82 Long term (current) use of aspirin
CPT/HCPCS: 76000; 81235; 85060; 87070; 87077; 87102; 87116; 87206; 88112; 88305; 88341; 88342; 88360; 88377; 89051; J2001; J2405; J2704; J3010; J7620

== ENCOUNTER 2018-01-05 21:29 | Inpatient (IN) | payer MEDICARE ==
[2018-01-05 22:04] LABS: INR-International Normal Ratio 1.2; PTT 26.9 SEC (22.9-36.1); Prothrombin Time 15.6 SEC (12.0-14.7)
[2018-01-05 22:09] LABS: ALT (SGPT) 13 U/L (8-55); AST (SGOT) 30 U/L (5-34); Albumin 3.3 g/dL (3.4-4.8); Alkaline Phosphatase 75 U/L (40-150); Anion Gap 15 mmol/L (10-20); BUN (Urea Nitrogen) 20 mg/dL (9.8-20.1); Bilirubin, Total 0.8 mg/dL (0.2-1.2); Calc. Creatinine Clearance 0 mL/min (70-130); Calcium 10.9 mg/dL (7.8-10.44); Carbon Dioxide 26 mmol/L (23-31); Chloride 102 mmol/L (98-107); Estimated GFR-MDRD 37; Globulin 3.7 g/dL (2.4-3.5); Glucose 137 mg/dL (83-110); Potassium 4.3 mmol/L (3.5-5.1); Sodium 139 mmol/L (136-145)
[2018-01-05 22:14] LABS: CKMB 0.4 ng/mL (0-6.6); Troponin I Less than 0.010 ng/mL (< 0.028)
[2018-01-05 22:17] LABS: Bilirubin Small (Negative); Blood, Urine Large (Negative); Clarity CLOUDY (Clear); Glucose, Urine (Dipstick) Negative (Negative); Leukocyte Moderate (Negative); Nitrite Negative (Negative); Protein, Urine (Dipstick) 30 mg/dL (Neg-Trace); Specific Gravity, Urine 1.011 (1.002-1.036); Urobilinogen 0.2 mg/dL (0.2-1.0); pH, Urine 7.5 (5.0-9.0)
[2018-01-05 22:18] LABS: Bacteria/HPF None Seen HPF (None Seen); Hyaline Casts/LPF 7-10 HYALINE CAST LPF (0-3 Hyaline); Pathc Cast-AUWi Flag 2.16 (0-2.49); WBC/HPF 21-50 HPF (0-3)
[2018-01-05 22:20] LABS: RBC/HPF GREATER THAN 50-TNTC HPF (0-3); Yeast-AUWi Flag 140.9 (0-25.0)
[2018-01-05 22:21] LABS: Yeast-All Forms None Seen HPF (None Seen)
[2018-01-05 22:23] LABS: Hemoglobin 11.2 g/dL (12.0-16.0); Mean Corpuscular HGB CONC 33.5 g/dL (32.0-36.0); Mean Corpuscular Hemoglobin 32.9 pg (27.0-31.0); Mean Corpuscular Volume 98.3 fl (81.0-99.0); Mean Platelet Volume 8.4 fL (7.4-10.4); Platelet Count 283 thou/uL (130-400); RBC Distribution Width 23.5 % (11.5-14.5); Red Blood Cell (RBC) Count 3.39 mill/uL (4.20-5.40); White Blood Cell (WBC) Count 14.2 thou/uL (4.8-10.8)
[2018-01-05] MEDS ORDERED: cefTRIAXone\\ROCEPHIN 1 GM VIAL ONE (22:25)
--- NOTE | 2018-01-05 22:25 | CT ---
CT BRAIN WITHOUT CONTRAST: Date: 01/05/18 INDICATION: Generalized weakness and difficulty speaking. COMPARISON: Prior exam dated 10/26/17. FINDINGS: There is a remote lacunar infarct involving the right thalamus. There is generalized cerebral and cer ebellar atrophy. There is mild chronic small vessel white matter ischemic change. The skull and extra cranial soft tissues appear unremarkable. Small lucency involving the right occipital skull is stable . Mastoid air cells are clear. IMPRESSION: No acute intracranial abnormality. Findings called to Dr. Mercado at 2150 hours on 01/05/18. CODE CR. POS: [facility]
[2018-01-05 22:26] LABS: Acanthocytes SLIGHT = 1-5 cells (100X) (None Seen); Anisocytosis SLIGHT = 6-15 cells (100X) (0-5/hpf); Band 24 % (5-11); Elliptocytes SLIGHT = 2-5 cells (100X) (0-1/hpf); Lymphocytes 15 % (21-51); MDiff Complete? YES; Monocytes 5 % (0-10); Neutrophil 56 % (42-75)
--- NOTE | 2018-01-05 22:34 | RAD ---
AP VIEW CHEST: Date: 01/05/18 INDICATION: Generalized weakness and unable to speak. COMPARISON: Prior exam dated 10/30/17. FINDINGS: There is persistent air space opacity within the left suprahilar region when compared to the prior da sapphire 10/25/17 and 10/30/17. Cardiomegaly persists. No pleural effusion is evident. The previously seen right lower lobe pneumonia has resolved. No acute osseous abnormality is evident. IMPRESSION: 1. Persistent left suprahilar air space opacity. Patient is slightly rotated, limiting examination. This is concerning for possible malignancy. Dedicated CT of the thorax is recommended for additional characterization. 2. Stable cardiomegaly. 3. Stable vascular calcification of the aortic arch. CODE T. POS: [facility]
[2018-01-05] MEDS ORDERED: Acetaminophen 650 MG Suppository ONE (22:50)
[2018-01-06] MEDS ORDERED: Ondansetron ODT 4 MG TAB SL PRN (01:49)
[2018-01-06] MEDS ORDERED: Acetaminophen 325 MG TAB PO PRN (01:49)
[2018-01-06] MEDS ORDERED: Ondansetron HCl/PF 4 MG/2 ML Vial IVP PRN ×2 (01:49→09:40)
[2018-01-06] MEDS: Sodium Chloride 0.9% 1,000 ML IV SCH ×4 (02:01→20:26)
[2018-01-06 02:07] VITALS: BMI 25.7
[2018-01-06] MEDS ORDERED: Prevnar 13-Val Conj/PF 0.5 ML SYRINGE IM ONE (09:00)
[2018-01-06] MEDS ORDERED: cloNIDine 0.1 MG TAB PO PRN (09:40)
[2018-01-06] MEDS ORDERED: Ondansetron ODT 4 MG TAB PO PRN (09:40)
[2018-01-06] MEDS ORDERED: hydrALAZINE 20 MG/ML VIAL SLOW IVP PRN (09:40)
[2018-01-06] MEDS ORDERED: Nystatin Powder 15 GM BOT TOP PRN (09:40)
--- NOTE | 2018-01-06 10:25 | HP ---
DATE OF ADMISSION: 01/06/2018 PRIMARY CARE PROVIDER: Danny Sewell M.D. CHIEF COMPLAINT: Altered mental status. 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 The patient was n oted by family members with confusion starting approximately 2000 p.m. on 01/05/2018. The patient wa s not interacting appropriately with the family, appeared confused and initially was concerning for f amily members that she had had a stroke. The patient was noted with a low-grade fever at home by the daughter who sought out medical care at the Emergency Department. The patient was apparently recent ly treated for a right lower lobe pneumonia, finishing antibiotics in the last 5-7 days. The patient has had decreased oral intake and does not drink water on a regular basis according to the daughter. The patient does drink mainly tea and juice. No specific history of nausea, vomiting, or diarrhea. The patient is ambulatory with use of a rolling walker and has been receiving physical therapy thro [facility] twice a week. The patient normally is able to feed herself, ambulate with a rolling walker and interact appropriately with family members. No specific history of recent fall, direct trauma, travel history, unilateral weakness or diarrhea. In the emergency room, patient underwent general evaluation with metabolic screening showing evidence of urinary tract infection at which patient received Rocephin 2 grams intravenously x1 dose. The patient also received acetaminop hen rectally as well as 2 liters of normal saline. The patient was transferred to the medical floor for further evaluation. PAST MEDICAL HISTORY: 1. 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 Alzheimer's dementia. 3. Tobacco abuse greater than 60 years. 4. Hypertension. 5. Hypothyroidism. 6. Chronic normocytic anemia. 7. Anxiety/depression. PAST SURGICAL HISTORY: 1. Status post hysterectomy. 2. Status post bronchoscopy with biopsies confirming poorly differentiated squamous cell carcinoma. CURRENT MEDICATIONS: 1. Enteric coated aspirin 81 mg 1 tab p.o. daily. 2. Vitamin D3 1000 units p.o. daily. 3. Donepezil 10 mg p.o. q.a.m. 4. Levothyroxine 25 mcg p.o. daily. 5. Namenda 5 mg p.o. b.i.d. 6. Metoprolol succinate 100 mg p.o. q.a.m. 7. Multivitamin 1 tab p.o. daily. 8. Seroquel 125 mg p.o. q.a.m. ALLERGIES: No known drug allergies. FAMILY HISTORY: No inheritable diseases per patient report. SOCIAL HISTORY: Patient resides in [place], [place]. Receives home health services twice week ly through [facility]. Ambulates with the use of a rolling walker. No current alcohol , tobacco or illicit drug use. Smoking greater than 60 years. REVIEW OF SYSTEMS: The following complete review of systems was negative, unless otherwise mentioned in the HPI or below: Constitutional: Weight loss or gain, ability to conduct usual activities. Skin: Rash, itching. Eyes: Double vision, pain. ENT/Mouth: Nose bleeding, neck stiffness, pain, tenderness. Cardiovascular: Palpitations, dyspnea on exertion, orthopnea. Respiratory: Shortness of breath, wheezing, cough, hemoptysis, fever or night sweats. Gastrointestinal: Poor appetite, abdominal pain, heartburn, nausea, vomiting, constipation, or diarr hea. Genitourinary: Urgency, frequency, dysuria, nocturia. Musculoskeletal: Pain, swelling. Neurologic/Psychiatric: Anxiety, depression. Allergy/Immunologic: Skin rash, bleeding tendency. Otherwise negative except as stated per HPI. PHYSICAL EXAMINATION: VITAL SIGNS: Currently, blood pressure 151/66, pulse 64, respiratory rate 20, temperature 98.3 degre es Fahrenheit, O2 saturation 100% on 2 liters per minute by nasal cannula. GENERAL APPEARANCE: This is an 83-year-old female, smiling, alert, answers to name, orient ed x1, in no acute distress. HEENT: Pupils are equal, round, and reactive to light and accommodation. Extraocular muscles are in tact. No scleral icterus, no conjunctival injection. Nares patent. OP is clear. No oral lesions n oted. NECK: Supple. No cervical adenopathy. No thyromegaly, no carotid bruits, no JVD appreciated. Cerv ical spine with full active and passive range of motion. No meningeal signs appreciated. CHEST: Lungs are clear to auscultation bilaterally. CARDIOVASCULAR: S1 and S2 without noted murmur, rub or gallop. ABDOMEN: Rounded, soft, nontender and nondistended. Bowel sounds are positive in all four quadrants . There is no hepatosplenomegaly, no abdominal bruits, no rebound or guarding appreciated. EXTREMITIES: Warm and dry with fair turgor. No clubbing, cyanosis or asymmetric edema appreciated. Pulses palpable distally at the dorsalis pedis, posterior tibial, and popliteal arteries bilaterally . Capillary refill less than 2 seconds. NEUROLOGIC: Cranial nerves II-XII are grossly intact. Alert and oriented x1 to person. Not observe d ambulatory during this exam. PERTINENT LABORATORY DATA AND IMAGING DATA: Sodium 139, potassium is 4.3, chloride 102, CO2 26, BUN 20, creatinine 1.37, estimated GFR 37, glucose 137, lactic acid level 1.8, calcium 10.9. LFTs within normal limits. Troponin I negative x1. Albumin 3.3. CBC showed white blood cell count of 14.2, he moglobin 11, hematocrit 33, platelet count 283 with 56% neutrophils, 24% bands. PT 15.6, INR 1.2 and PTT 26.9. Urinalysis showed a specific gravity of 1.011, positive protein, trace ketones, positive blood, moderate leukocyte esterase with greater than 50 to too numerous to count rbc's per high power field and 21-50 wbc's per high powered field. Blood cultures x2 from 01/05/2018 showed no growth to date. CT of the brain without contrast dated 01/05/2018 showed no acute intracranial process. Port able chest x-ray dated 01/05/2018 showed left suprahilar airspace opacity consistent with diagnosis o f squamous cell carcinoma of the lung. EKG dated 01/05/2018 by my interpretation shows sinus mechani sm with heart rates in the 70s. Attenuated R waves noted in the precordial leads. Normal axis. Fir st degree AV block noted. No acute ST-T wave changes appreciated. ASSESSMENT AND PLAN: 1. Acute metabolic encephalopathy. Suspect secondarily to dehydration in conjunction with urinary t ract infection. We will continue management as outlined below for each problem highlighted. Continu e general supportive measures. Anticipate improvement in overall mental status with supportive measu res. 2. Urinary tract infection. Await final urine culture results. Continue Rocephin 2 g IV q.24 hours . Continue intravenous normal saline and encourage increased free water intake. 3. Acute kidney injury. We will continue intravenous fluids as outlined previously. Avoid nephroto xic agents and contrast media. Repeat creatinine in the a.m. 4. 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 No current treatment per family report. Palliative Care consult. General supportive measures. 5. Alzheimer's dementia. Continue home regimen to include donepezil 10 mg daily and Namenda 5 mg b. i.d. 6. Prophylaxis. Sequential compression devices while in bed. Pepcid 20 mg p.o. b.i.d. PT evaluati on for functional assessment. General fall risk precautions. 7. Code status: DO NOT RESUSCITATE confirmed with patient's daughter at the bedside. Surrogate med ical decision maker is the patient's daughter.
[2018-01-06] MEDS: Acetaminophen 500 MG TAB PO PRN (15:58)
[2018-01-06] MEDS: Famotidine 20 MG TAB PO SCH (20:26)
[2018-01-06] MEDS ORDERED: cefTRIAXone\\ROCEPHIN 2 GM in Sodium Chloride 0.9% 100 ML IVPB SCH (21:00)
[2018-01-07] MEDS ORDERED: Nitroglycerin 0.4 MG TAB (25 Tab Bottle) ONE (03:55)
[2018-01-07] MEDS ORDERED: Aspirin 325 MG TAB ONE (04:02)
--- NOTE | 2018-01-07 04:05 | PDOC.EVN ---
Event Note - Event Note Event Note: poonam cramer called for chest pain/ heaviness and hypertensive urgency despite hydralazine 10mg IV check troponin, cbc, cmp, cxr, magnesium ekg stat d/w bedside nsg additional hydralazine 20mg IV x1 close monitoring exam normocephalic atraumatic slightly dry mm eomi s1 s2 pulses 2+ b/l UE no pitting pedal edema coarse throughout, limited ant exam, examined post nebs + bs, soft, non ttp maee a/p CXR ? new RLL infil - add vancomycin chest pain with "all over" pain - low dose morphine EKG unremarkable, troponin pending, v/q in AM to r/o PE close BP monitoring and control for hypertensive urgency d/w poonam cramer team and pts dtr at bedside
[2018-01-07] MEDS ORDERED: hydrALAZINE 20 MG/ML VIAL SLOW IVP SCH (04:15)
[2018-01-07] MEDS ORDERED: Morphine 4 MG/ML VIAL ONE (04:29)
[2018-01-07 04:39] LABS: Troponin I 0.024 ng/mL (< 0.028)
[2018-01-07 04:44] LABS: Band 3 % (5-11); Eosinophils 15 % (0-10); Hemoglobin 10.2 g/dL (12.0-16.0); Lymphocytes 21 % (21-51); MDiff Complete? YES; Mean Corpuscular HGB CONC 32.5 g/dL (32.0-36.0); Mean Platelet Volume 8.7 fL (7.4-10.4); Monocytes 6 % (0-10); Neutrophil 55 % (42-75); Platelet Count 273 thou/uL (130-400); RBC Distribution Width 23.5 % (11.5-14.5); Red Blood Cell (RBC) Count 3.08 mill/uL (4.20-5.40); White Blood Cell (WBC) Count 12.9 thou/uL (4.8-10.8)
[2018-01-07 04:51] LABS: ALT (SGPT) 12 U/L (8-55); AST (SGOT) 19 U/L (5-34); Albumin 2.8 g/dL (3.4-4.8); Alkaline Phosphatase 55 U/L (40-150); Anion Gap 11 mmol/L (10-20); BUN (Urea Nitrogen) 17 mg/dL (9.8-20.1); Bilirubin, Total 0.5 mg/dL (0.2-1.2); Calc. Creatinine Clearance 48 mL/min (70-130); Calcium 9.2 mg/dL (7.8-10.44); Carbon Dioxide 20 mmol/L (23-31); Chloride 113 mmol/L (98-107); Estimated GFR-MDRD 59; Glucose 93 mg/dL (83-110); Magnesium 1.4 mg/dL (1.6-2.6); Potassium 3.3 mmol/L (3.5-5.1); Protein, Total 5.8 g/dL (6.0-8.3); Sodium 141 mmol/L (136-145)
[2018-01-07] MEDS ORDERED: Vancomycin HCl 1 GM in Premix Bag 1 BAG IVPB SCH (05:00)
[2018-01-07] MEDS: Acetaminophen 500 MG TAB PO PRN (05:32)
[2018-01-07 08:32] VITALS: BP 154/76; TEMP 98.6
[2018-01-07] MEDS ORDERED: Potassium Chloride 20 MEQ TAB PO SCH (08:45)
[2018-01-07] MEDS ORDERED: Magnesium 2 GM/NS 0.9% 100 ML 2 GM in Premix Bag 1 BAG IVPB SCH (08:45)
[2018-01-07] MEDS ORDERED: Donepezil HCl 10 MG TAB PO SCH (09:00)
[2018-01-07] MEDS ORDERED: Levothyroxine Sodium 25 MCG TAB PO SCH (09:00)
[2018-01-07] MEDS ORDERED: Non-Formulary Item 1 EACH (Cholecalciferol (Vitamin D3) [Vitamin D3] 1,000 UNIT) PO SCH (09:00)
[2018-01-07] MEDS ORDERED: Aspirin 81 mg Enteric Coated Tablet PO SCH (09:00)
[2018-01-07] MEDS ORDERED: Multivitamin W/ Minerals 1 TAB PO SCH (09:00)
--- NOTE | 2018-01-07 09:10 | ULT ---
RENAL SONOGRAM: History: Hematuria, lung cancer. FINDINGS: Right kidney is 11.8 cm and contains cortical cysts measuring up to 1.1 cm. No hydronephrosis or yousif d mass. Left kidney is 8.7 cm and also contains several cortical cysts measuring up to 3.9 cm at the inferior pole. No hydronephrosis. Pocket of fluid projecting rightward from the urinary bladder has the appearance of a diverticulum. IMPRESSION: 1. Bilateral renal cysts. No evidence of upper urinary tract obstruction. 2. Urinary bladder diverticulum. POS: [facility]
[2018-01-07] MEDS: Famotidine 20 MG TAB PO SCH (09:32)
--- NOTE | 2018-01-07 09:39 | RAD ---
PORTABLE AP CHEST RADIOGRAPH: Date: 01-07-18 History: Chest pain. Comparison: 01-05-18 FINDINGS: There is a focal area of increased density and developing consolidation within the lateral left midlu ng zone. Hazy opacities seen in this region on the prior exam. Air space opacity appears more consoli dation on today's exam. There has also been interval development of patchy air space opacity at the r ight lung base. Increased density is seen at the left lung base which may be related to left pleural effusion and atelectasis. However, developing infiltrate in the left lung base is a possibility. Card iac silhouette is magnified by projection but does appear enlarged. Pulmonary vasculature is within n ormal limits. Vascular calcifications are seen in the thoracic aorta. No other interval change. IMPRESSION: 1. Multifocal airspace opacities, and findings may be related to multifocal pneumonia. Follow up to c omplete resolution is recommended. 2. Left pleural effusion. POS: [facility]
--- NOTE | 2018-01-08 16:02 | DIS ---
DATE OF ADMISSION: 01/05/2018 DATE OF DISCHARGE: 01/07/2018 DISCHARGE DIAGNOSES: 1. Acute metabolic encephalopathy. 2. Urinary tract infection. 3. Mild acute kidney injury. 4. Hypertension. HOSPITAL COURSE: The patient is a very pleasant 83-year-old female who was recently diagnosed with l enedina cancer on her left lobe. The patient currently is not on any chemotherapy. The patient was talia sapphire for UTI initially with ceftriaxone. Urine culture indicated Citrobacter, which is sensitive to L evaquin. The patient also had a blood culture that was positive for coccobacilli one bottle out of 2 bottles. Patient's family wanted to take the patient home with hospice. The patient's family was n otified about the positive blood culture and I mentioned to them that I will follow it. If it change s to anything that is pretty significant that requires additional antibiotics, I will let the family know. The patient also was ordered a VQ scan for possible PE given the fact that the patient require d oxygen during the hospital stay. The patient's family was aware and refused the testing given her overall poor prognosis. They wanted to take the patient home since the patient was getting more conf used while she was in the hospital. At this time, hospice was called and the patient will be going h ome with hospice. PHYSICAL EXAMINATION: VITAL SIGNS: 98.6, 84, 20, 95% on 2.5 liters, blood pressure 154/76. GENERAL: She is awake, alert, oriented x3, does not appear in distress. CARDIOVASCULAR: S1, S2 present. No murmurs, rubs or gallops. LUNGS: Mild rhonchi to bilateral lower bases. ABDOMEN: Soft, nontender. Bowel sounds are present x2. EXTREMITIES: No edema. DISCHARGE MEDICATIONS: As the following: Seroquel 25 mg q.a.m., multivitamin 1 p.o. daily, vitamin D3 of 1000 units p.o. daily, aspirin 81 mg p.o. daily, sertraline 100 mg p.o. q.a.m., metoprolol 10 m g p.o. q.a.m., donepezil 10 mg p.o. q.a.m., Namenda 5 mg p.o. b.i.d., levothyroxine 25 mcg p.o. q.a.m ., and Levaquin 500 mg p.o. daily for 6 days. Patient will follow up as needed with her primary care doctor.
--- NOTE | 2018-01-08 20:18 | EKG ---
Test Reason : CODE GREEN Blood Pressure : / mmHG Vent. Rate : 081 BPM Atrial Rate : 081 BPM P-R Int : 220 ms QRS Dur : 088 ms QT Int : 354 ms P-R-T Axes : 083 103 042 degrees QTc Int : 411 ms Sinus rhythm with 1st degree A-V block Rightward axis Anteroseptal infarct (cited on or before 25-OCT-2017) Abnormal ECG When compared with ECG of 05-JAN-2018 22:09, (Unconfirmed) Questionable change in initial forces of Anterior leads Confirmed by ROBER ANDUJAR ([id number]) on 01/08/2018 8:18:05 PM Referred By: LOLA Confirmed By:ROBER ANDUJAR
--- NOTE | 2018-01-11 16:36 | EKG ---
Test Reason : AMS Blood Pressure : / mmHG Vent. Rate : 078 BPM Atrial Rate : 078 BPM P-R Int : 224 ms QRS Dur : 096 ms QT Int : 394 ms P-R-T Axes : 075 072 070 degrees QTc Int : 449 ms Sinus rhythm with 1st degree A-V block Septal infarct , age undetermined Abnormal ECG Confirmed by PACO LOO ([id number]), electronic news gathering editor TRICIA MARINO ([id number]) on 01/11/2018 4:36:24 PM Referred By: Confirmed By:PACO LOO
== END 2018-01-07 14:02 | disposition hospice, home (50) | DRG 689 ==
LOC: ERS 21:29 → ONC 23:25
PROVIDERS: ADMIT Internal Medicine; ATTEND Internal Medicine
DX: N39.0 Urinary tract infection, site not specified (principal); G93.41 Metabolic encephalopathy; N17.9 Acute kidney failure, unspecified; C34.92 Malignant neoplasm of unspecified part of left bronchus or lung; I10 Essential (primary) hypertension; Z87.01 Personal history of pneumonia (recurrent); G30.9 Alzheimer's disease, unspecified; F02.80 Dementia in other diseases classified elsewhere, unspecified severity, without behavioral disturbance, psychotic disturbance, mood disturbance, and anxiety; Z87.891 Personal history of nicotine dependence; E03.9 Hypothyroidism, unspecified; F41.9 Anxiety disorder, unspecified; F32.9 Major depressive disorder, single episode, unspecified; E86.0 Dehydration; Z66 Do not resuscitate
CPT/HCPCS: 36415; 36416; 51701; 70450; 71045; 76770; 80053; 81003; 81015; 82553; 83605; 83735; 84484; 85007; 85025; 85027; 85610; 85730; 87040; 87077; 87086; 87186; 90471; 90670; 93005; 93010; 94640; 94760; 96361; 96374; A4216; A4353; G0009; J0360; J0696; J2270; J3370; J3475; J7050; J7620